=== PATIENT | female | born 1975 | race Caucasian/White ===

== ENCOUNTER → 2017-03-16 | Outpatient (REF) | payer OTHER ==
[2017-03-16 12:35] LABS: BASO % 0.5 % (0.0-1.0); EOS # 0.1 K/mm3 (0.0-0.50); EOS % 1.8 % (0.0-3.0); LARGE UNSTAINED CELL # 0.2 K/mm3 (0.0-0.4); LARGE UNSTAINED CELL % 2.6 % (0.0-4.0); LYMPH # 1.7 K/mm3 (1.5-4.5); LYMPH % 29.4 % (24.0-44.0); MEAN CORPUSCULAR HEMOGLOBIN 30.8 pg (27.0-33.0); MEAN CORPUSCULAR HGB CONC 32.6 g/dl (32.0-36.5); MEAN CORPUSCULAR VOLUME 94.3 fl (80.0-96.0); MONO # 0.3 K/mm3 (0.0-0.8); NEUTROPHILS # 3.5 K/mm3 (1.8-7.7); NEUTROPHILS % 60.6 % (36.0-66.0); PLATELET COUNT, AUTOMATED 265 k/mm3 (150-450); RED CELL DISTRIBUTION WIDTH 13.2 % (11.5-14.5); WHITE BLOOD COUNT 5.8 K/mm3 (4.0-10.0)
[2017-03-16 13:03] LABS: ALBUMIN/GLOBULIN RATIO 0.98 (1.00-1.93); ALKALINE PHOSPHATASE 54 U/L (45-117); ALT/SGPT 27 U/L (12-78); ANION GAP 6 MEQ/L (8-16); AST/SGOT 11 U/L (15-37); BILIRUBIN,TOTAL 0.5 MG/DL (0.2-1.0); BLOOD UREA NITROGEN 22 MG/DL (7-18); CALCIUM LEVEL 9.1 MG/DL (8.5-10.1); CARBON DIOXIDE LEVEL 29 MEQ/L (21-32); CHLORIDE LEVEL 105 MEQ/L (98-107); CREATININE FOR GFR 0.59 MG/DL (0.55-1.02); GLOMERULAR FILTRATION RATE > 60.0 (>58); GLUCOSE, FASTING 80 MG/DL (70-105); POTASSIUM SERUM 4.2 MEQ/L (3.5-5.1); SODIUM LEVEL 140 MEQ/L (136-145); TOTAL PROTEIN 8.1 GM/DL (6.4-8.2)
== END ==
LOC: M SFHCCLAY 08:43
PROVIDERS: ATTEND Family Medicine
DX: R07.89 Other chest pain (principal); E03.9 Hypothyroidism, unspecified; E55.9 Vitamin D deficiency, unspecified

== ENCOUNTER → 2019-01-18 | Outpatient (REF) | payer OTHER ==
[2019-01-18 16:59] LABS: BASO % 0.3 % (0.0-1.0); EOS # 0.2 10^3/uL (0.0-0.50); EOS % 2.2 % (0.0-3.0); HEMATOCRIT 41.5 % (36.0-47.0); HEMOGLOBIN 13.7 g/dl (12.0-15.5); LYMPH # 1.9 10^3/uL (1.5-4.5); LYMPH % 28.3 % (24.0-44.0); MEAN CORPUSCULAR HEMOGLOBIN 30.1 pg (27.0-33.0); MEAN CORPUSCULAR VOLUME 91.2 fl (80.0-96.0); MONO # 0.6 10^3/uL (0.0-0.8); MONO % 8.2 % (0.0-5.0); NEUTROPHILS % 60.6 % (36.0-66.0); PLATELET COUNT, AUTOMATED 342 10^3/uL (150-450); RED BLOOD COUNT 4.55 10^6/uL (4.00-5.40); WHITE BLOOD COUNT 6.7 10^3/uL (4.0-10.0)
[2019-01-18 17:31] LABS: ALBUMIN 3.8 GM/DL (3.2-5.2); ALT/SGPT 51 U/L (12-78); BILIRUBIN,TOTAL 0.4 MG/DL (0.2-1.0); BLOOD UREA NITROGEN 18 MG/DL (7-18); C REACTIVE PROTEIN QUANTITATIV 0.58 MG/DL (0.00-0.30); CALCIUM LEVEL 8.4 MG/DL (8.5-10.1); CARBON DIOXIDE LEVEL 28 MEQ/L (21-32); CHLORIDE LEVEL 108 MEQ/L (98-107); CREATININE FOR GFR 0.76 MG/DL (0.55-1.30); GLOMERULAR FILTRATION RATE > 60.0 (>58); GLUCOSE, FASTING 87 MG/DL (70-100); MAGNESIUM LEVEL 2.4 MG/DL (1.8-2.4); POTASSIUM SERUM 3.7 MEQ/L (3.5-5.1); SODIUM LEVEL 141 MEQ/L (136-145); TOTAL PROTEIN 8.2 GM/DL (6.4-8.2)
[2019-01-18 17:57] LABS: ERYTHROCYTE SEDIMENTATION RATE 33 mm/hr (0-20)
[2019-01-23 00:07] LABS: ANA (HEP2) Negative (.); CYCLIC CITRULLINATED PEPTIDE 4 units (0-19); Lyme Disease IgG/IgM Antibodie <0.91 ISR (0.00-0.90); Lyme Disease IgM Ab Quantitati <0.80 index (0.00-0.79)
== END ==
LOC: M SFHCCLAY 13:46
PROVIDERS: ATTEND Family Medicine
DX: E03.9 Hypothyroidism, unspecified (principal); I10 Essential (primary) hypertension; M25.50 Pain in unspecified joint; M79.10 Myalgia, unspecified site

== ENCOUNTER → 2019-01-28 | Outpatient (CLI) | payer OTHER ==
--- NOTE | 2019-01-29 06:25 | REP ---
Clinical: Thyromegaly. Technique: Real time looney scale and color evaluation using linear and curved array transducers. Findings: The thyroid gland is moderately enlarged and heterogeneous without discrete nodule or cystic changes appreciated. Right thyroid lobe measures 5.2 x 3.1 x 2.6 cm. Left thyroid lobe measures 6.7 x 2.9 x 2.4 cm. Isthmus measures 4.8 mm in width. Impression: Moderately enlarged thyroid gland without discrete abnormality noted. Electronically Signed by Berry Sutton MD 01/29/2019 06:18 A
== END ==
LOC: M RAD 08:24
PROVIDERS: ATTEND Family Medicine
DX: E01.0 Iodine-deficiency related diffuse (endemic) goiter (principal)

== ENCOUNTER → 2019-02-19 | Outpatient (CLI) | payer OTHER ==
--- NOTE | 2019-02-19 11:09 | REP ---
PA and lateral chest: There are no comparisons. The lung osorio are clear. The cardiac size is normal. The nohemi, mediastinum, and skeletal structures are unremarkable. Impression: Negative PA and lateral chest. Electronically Signed by Steve Freed MD 02/19/2019 11:01 A
== END ==
LOC: M CLY 10:29
PROVIDERS: ATTEND Family Medicine
DX: R06.02 Shortness of breath (principal); R68.83 Chills (without fever)

== ENCOUNTER → 2019-03-11 | Outpatient (REF) | payer OTHER | LOC: M SFHCCLAY 15:59 | PROVIDERS: ATTEND Family Medicine | DX: E03.9 Hypothyroidism, unspecified (principal); I10 Essential (primary) hypertension ==

== ENCOUNTER → 2019-07-23 | Outpatient (REF) | payer OTHER ==
[2019-07-23 18:58] LABS: BASO % 0.7 % (0.0-1.0); EOS # 0.1 10^3/uL (0.0-0.5); EOS % 1.9 % (0.0-3.0); HEMATOCRIT 39.9 % (36.0-47.0); HEMOGLOBIN 13.1 g/dl (12.0-15.5); LYMPH % 33.3 % (24.0-44.0); MEAN CORPUSCULAR HEMOGLOBIN 30.3 pg (27.0-33.0); MEAN CORPUSCULAR HGB CONC 32.8 g/dl (32.0-36.5); MEAN CORPUSCULAR VOLUME 92.4 fl (80.0-96.0); MONO # 0.6 10^3/uL (0.0-0.8); MONO % 10.4 % (0.0-5.0); NEUTROPHILS # 3.1 10^3/uL (1.5-8.5); NEUTROPHILS % 53.4 % (36.0-66.0); PLATELET COUNT, AUTOMATED 207 10^3/uL (150-450); RED BLOOD COUNT 4.32 10^6/uL (4.00-5.40); WHITE BLOOD COUNT 5.9 10^3/uL (4.0-10.0)
[2019-07-23 19:22] LABS: ALBUMIN 3.7 GM/DL (3.2-5.2); ALT/SGPT 31 U/L (12-78); BILIRUBIN,TOTAL 0.4 MG/DL (0.2-1.0); BLOOD UREA NITROGEN 12 MG/DL (7-18); CALCIUM LEVEL 8.8 MG/DL (8.5-10.1); CARBON DIOXIDE LEVEL 26 MEQ/L (21-32); CHLORIDE LEVEL 109 MEQ/L (98-107); CREATININE FOR GFR 0.69 MG/DL (0.55-1.30); FOLLICLE STIMULATING HORMONE 7.4 mIU/mL; GLOMERULAR FILTRATION RATE > 60.0 (>58); GLUCOSE, FASTING 95 MG/DL (70-100); IRON (FE) 99 UG/DL (50-170); POTASSIUM SERUM 3.6 MEQ/L (3.5-5.1); SODIUM LEVEL 141 MEQ/L (136-145); THYROXINE (T4) 7.1 UG/DL (4.5-12.0); TOTAL PROTEIN 7.8 GM/DL (6.4-8.2); TOTAL T3 109.2 NG/DL (60.0-181.0)
[2019-07-23 19:29] LABS: HEMOGLOBIN A1c 5.7 %
== END ==
LOC: M SFHCCLAY 10:32
PROVIDERS: ATTEND Family Medicine
DX: K62.5 Hemorrhage of anus and rectum (principal); I10 Essential (primary) hypertension; E28.2 Polycystic ovarian syndrome; E03.9 Hypothyroidism, unspecified; N93.9 Abnormal uterine and vaginal bleeding, unspecified

== ENCOUNTER 2019-10-09 10:41 | Day surgery (SDC) | payer OTHER ==
[~2019-10-09] VITALS: Ht 163.8 cm; Wt 76.7 kg
[~2019-10-09 10:41] MED LIST: LIDOCAINE 2% INJ 100 MG/5 ML SDV (FOR ANES.) As Ordered ONE; NS 1,000 ML IV ONE; PROPOFOL 200 MG/20 ML VIAL As Ordered ONE; SPIR-10 PO; VENL150C43 PO
[2019-10-09] MEDS ORDERED: fentaNYL 100 MCG/2 ML INJECTION (J3010) As Ordered ONE (12:22)
[2019-10-09] MEDS ORDERED: PROPOFOL 200 MG/20 ML VIAL As Ordered ONE (12:30)
--- NOTE | 2019-10-09 12:38 | ROOR ---
Patient Name: Vanessa Eugene Procedure Date: 10/09/2019 12:16 PM Date of : 1975 Age: 44 Room: [facility] Gender: Female Note Status: Finalized Procedure: Upper GI endoscopy + Balloon Dilatation Indications: Dysphagia, Weight loss Providers: Rajeev Peters MD Referring MD: DANIEL MCLAUGHLIN DO Requesting Provider: Medicines: Monitored Anesthesia Care Complications: No immediate complications. Procedure: Pre-Anesthesia Assessment: - The heart rate, respiratory rate, oxygen saturations, blood pressure, adequacy of pulmonary ventilation, and response to care were monitored throughout the procedure. The Endoscope was introduced through the mouth, and advanced to the second part of duodenum. The upper GI endoscopy was accomplished without difficulty. The patient tolerated the procedure well. Findings: The Z-line was regular and was found 40 cm from the incisors. The exam of the esophagus was otherwise normal. A TTS dilator was passed through the scope. Dilation with a 15-16.5-18 mm balloon dilator was performed to 15 mm in the entire esophagus. No other significant abnormalities were identified in a careful examination of the stomach. The exam of the duodenum was otherwise normal. Impression: - Z-line regular, 40 cm from the incisors. - Dilation performed in the entire esophagus. - No specimens collected. - The examination was otherwise normal. Recommendation: - Patient has a contact number available for emergencies. The signs and symptoms of potential delayed complications were discussed with the patient. Return to normal activities tomorrow. Written discharge instructions were provided to the patient. - High fiber diet. - Discharge patient to home. - Continue present medications. - Return to referring physician. - The findings and recommendations were discussed with the patient's family. Rajeev Peters MD Rajeev Peters MD 10/09/2019 12:37:49 PM Electronically signed by Rajeev Peters MD Number of Addenda: 0 Note Initiated On: 10/09/2019 12:16 PM Estimated Blood Loss: Estimated blood loss: none.
--- NOTE | 2019-10-09 13:01 | ROOR ---
Patient Name: Vanessa Eugene Procedure Date: 10/09/2019 12:16 PM Date of : 1975 Age: 44 Room: [facility] Gender: Female Note Status: Finalized Procedure: Total Colonoscopy to Cecum + ileoscopy + Bx Indications: Clinically significant diarrhea of unexplained origin, Rectal bleeding, Weight loss Providers: Rajeev Peters MD Referring MD: DANIEL MCLAUGHLIN DO Requesting Provider: Medicines: Monitored Anesthesia Care Complications: No immediate complications. Procedure: Pre-Anesthesia Assessment: - The heart rate, respiratory rate, oxygen saturations, blood pressure, adequacy of pulmonary ventilation, and response to care were monitored throughout the procedure. The Colonoscope was introduced through the anus and advanced to the terminal ileum, with identification of the appendiceal orifice and IC valve. The colonoscopy was performed without difficulty. The patient tolerated the procedure well. The quality of the bowel preparation was excellent. Findings: The perianal and digital rectal examinations were normal. Non-bleeding internal hemorrhoids were found during retroflexion. The hemorrhoids were small and Grade I (internal hemorrhoids that do not prolapse). No other significant abnormalities were identified in a careful examination of the remainder of the colon. The exam was otherwise without abnormality on direct and retroflexion views. Biopsies for histology were taken with a cold forceps from the cecum, ascending colon, transverse colon, descending colon and rectosigmoid colon for evaluation of microscopic colitis. A diffuse area of mucosa in the terminal ileum was nodular. Biopsies were taken with a cold forceps for histology. The exam was otherwise without abnormality. Impression: - Non-bleeding internal hemorrhoids. - The examination was otherwise normal on direct and retroflexion views. - Nodular ileal mucosa. Biopsied. - The examination was otherwise normal. - Biopsies were taken with a cold forceps from the cecum, ascending colon, transverse colon, descending colon and rectosigmoid colon for evaluation of microscopic colitis. - The exam was otherwise normal to the cecum. Recommendation: - Patient has a contact number available for emergencies. The signs and symptoms of potential delayed complications were discussed with the patient. Return to normal activities tomorrow. Written discharge instructions were provided to the patient. - High fiber diet. - Discharge patient to home. - Continue present medications. - Await pathology results. - Telephone GI clinic for pathology results in 1 week. - Repeat colonoscopy in 5 years for screening purposes. - The findings and recommendations were discussed with the patient's family. Rajeev Peters MD Rajeev Peters MD 10/09/2019 1:01:08 PM Electronically signed by Rajeev Peters MD Number of Addenda: 0 Note Initiated On: 10/09/2019 12:16 PM Estimated Blood Loss: Estimated blood loss: none.
[2019-10-09 13:35] VITALS: BP 153/89
== END 2019-10-09 13:37 | disposition home or self-care (01) ==
LOC: M OPP 10:41
PROVIDERS: ATTEND Internal Medicine Gastroenterology
DX: K64.0 First degree hemorrhoids (principal); K63.89 Other specified diseases of intestine; R19.7 Diarrhea, unspecified; K62.5 Hemorrhage of anus and rectum; K63.4 Enteroptosis; R13.10 Dysphagia, unspecified; Z79.899 Other long term (current) drug therapy; Z88.5 Allergy status to narcotic agent; Z80.0 Family history of malignant neoplasm of digestive organs
CPT/HCPCS: 43239; 88305; J3010

== ENCOUNTER 2020-05-14 07:38 | Observation (INO) | payer OTHER ==
[~2020-05-14] VITALS: Ht 162.6 cm; Wt 79.8 kg
[~2020-05-14 07:38] MED LIST changes: -LIDOCAINE 2% INJ 100 MG/5 ML SDV (FOR ANES.) As Ordered ONE; -NS 1,000 ML IV ONE; -PROPOFOL 200 MG/20 ML VIAL As Ordered ONE
[2020-05-14] MEDS ORDERED: EUTH150T PO (07:51)
[2020-05-14] MEDS ORDERED: ISOVUE-370 76% 100ML VIAL As Ordered ONE (08:09)
[2020-05-14] MEDS ORDERED: METOCLOPRAMIDE INJ 10MG/2ML VIAL (J2765 PER 1) IV ONE (08:15)
[2020-05-14] MEDS ORDERED: NS 1,000 ML IV ONE (08:15)
[2020-05-14 08:23] LABS: BASO % 0.4 % (0.0-1.0); EOS # 0.1 10^3/uL (0.0-0.5); HEMATOCRIT 40.5 % (36.0-47.0); HEMOGLOBIN 13.4 g/dl (12.0-15.5); LYMPH # 1.3 10^3/uL (1.5-5.0); LYMPH % 19.1 % (24.0-44.0); MEAN CORPUSCULAR HEMOGLOBIN 30.2 pg (27.0-33.0); MEAN CORPUSCULAR HGB CONC 33.1 g/dl (32.0-36.5); MEAN CORPUSCULAR VOLUME 91.2 fl (80.0-96.0); MONO # 0.5 10^3/uL (0.0-0.8); NEUTROPHILS # 4.9 10^3/uL (1.5-8.5); NEUTROPHILS % 72.1 % (36.0-66.0); PLATELET COUNT, AUTOMATED 247 10^3/uL (150-450); RED BLOOD COUNT 4.44 10^6/uL (4.00-5.40); WHITE BLOOD COUNT 6.9 10^3/uL (4.0-10.0)
--- NOTE | 2020-05-14 08:33 | REP ---
Head CT without contrast: History: CVA. Comparison study: Comparison brain MRI study and February 07, 2014. CT findings: Bone window settings demonstrate an intact bony calvarium. There is a small osteoma in the left frontal bone at the inner table unchanged from the 2014 prior study. There is no evidence of skull fracture or significant bony calvarial lesion. The visualized paranasal sinuses appear clear. No intraorbital abnormality is seen. On soft tissue window setting images; the lateral, third, and fourth ventricles are normal in size and position. Calcification associated with the previously noted 10 mm pineal cyst is seen. This is unchanged in size. Loza-white differentiation pattern is normal above and below the tentorium. There are is no evidence of intracranial hemorrhage. No mass, edema, infarction, or midline shift is seen. No extra-axial fluid collection is appreciated. 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 Otherwise negative noncontrast head CT. Electronically Signed by Lincoln Ramírez MD 05/14/2020 08:24 A
[2020-05-14 08:36] LABS: INR 1.09; PROTHROMBIN TIME 13.8 SECONDS (11.8-14.0)
[2020-05-14 08:37] LABS: PARTIAL THROMBOPLASTIN TIME 21.8 SECONDS (25.0-38.4)
[2020-05-14 08:50] LABS: ALBUMIN 3.6 GM/DL (3.2-5.2); ALT/SGPT 51 U/L (12-78); BILIRUBIN,DIRECT 0.2 MG/DL (0.0-0.2); BILIRUBIN,TOTAL 0.6 MG/DL (0.2-1.0); BLOOD UREA NITROGEN 13 MG/DL (7-18); CALCIUM LEVEL 8.5 MG/DL (8.5-10.1); CARBON DIOXIDE LEVEL 25 MEQ/L (21-32); CHLORIDE LEVEL 106 MEQ/L (98-107); CK-MB VALUE MASS 1.5 NG/ML (<3.6); CPK CREATINE PHOSPHOKINASE 104 U/L (26-192); CREATININE FOR GFR 0.78 MG/DL (0.55-1.30); FREE T4 0.93 NG/DL (0.76-1.46); GLOMERULAR FILTRATION RATE > 60.0 (>58); GLUCOSE, FASTING 135 MG/DL (70-100); MB/CK RELATIVE INDEX 1.44 (< OR =4); POTASSIUM SERUM 3.6 MEQ/L (3.5-5.1); SODIUM LEVEL 138 MEQ/L (136-145); TROPONIN I < 0.02 NG/ML (< 0.10)
--- NOTE | 2020-05-14 08:53 | REP ---
Portable chest x-ray: Single view. History: CVA. Comparison chest x-ray: February 19, 2019. Findings: Monitoring electrodes overlie the chest. Lungs are well inflated and clear. The pleural angles are sharp. Heart size is normal. Pulmonary vasculature is not increased. Impression: Negative portable chest x-ray. Electronically Signed by Lincoln Ramírez MD 05/14/2020 08:45 A
[2020-05-14] MEDS ORDERED: LABETALOL 100MG/20ML VIAL IV STA (08:56)
--- NOTE | 2020-05-14 09:56 | REP ---
Intra and extracranial CTA: 05/14/2020. Indication: Stroke. Technique: High resolution axial CT images of the intra and extracranial vessels were performed following IV iodinated contrast administration with coronal, sagittal and 3-D reconstructions provided. Comparison: None. Findings: There is no hemodynamically significant extracranial ICA stenosis by NASCET criteria. Thyromegaly is present without focal pathologic contrast enhancement or additional focal abnormalities. The visualized lungs are clear. The great vessels originate in expected anatomic fashion from the aortic arch. There is no intracranial high-grade stenosis, vessel occlusion, severe stenosis or AVM. Impression: No high-grade stenosis, vessel occlusion or additional vascular pathology. Electronically Signed by Jose Bueno DO 05/14/2020 09:47 A
[2020-05-14] MEDS ORDERED: VENL75CA47 PO (10:10)
[2020-05-14] MEDS ORDERED: ASPIRIN 325 MG TAB PO ONE (10:30)
--- NOTE | 2020-05-14 12:28 | HPEPDOC ---
[facility] Medical History & Physical Date of Admission May 14, 2020 Date of Service: May 14, 2020 Attending Physician: Natalie Arauz MD History and Physical CHIEF COMPLAINT: generalized numbness HISTORY OF PRESENT ILLNESS: Patient is a 45-year-old female with past medical history of migraine headaches, PCOS, uncontrolled hypertension, anxiety, depression, hypothyroidism who presented to [facility] emergency room with the chief complaint of generalized numbness. According to the patient, she has not been feeling well for the past several days. She has had increased lethargy, headaches (frontal, throbbing, has had in past seen neurologist for pineal cyst-migraine headache, 8/10 on pain scale), nausea with dry heaves only, lightheadedness, dizziness, vision changes (black floaters in vision field). Patient has had a lot of stress at home with a child recently graduating, taking care of 50 y/o disabled sister, stress due to money, taking care of mother in [facility]. She feels like there is a lot on her shoulders and that she is responsible for most of her family. 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 Denies shortness of breath, falls, diarrhea, fevers, chills, recent illnesses or hospitalizations. Today she she was in the shower when she felt she was going to "pass out". She got out of the shower and she says she "couldn't feel anything", everything was "numb" and her legs started to burn. She had hot flashes. While driving her son told her she was on the opposite side of the road. She denies losing consciousness but she doesn't feel as "alert" as she would be. She pulled over to the side of the road, hands were shaking and numb, became diaphoretic and she told her son to call 911. She was then brought to ER for further evaluation. Of note, patient had stopped taking all medications since 09/2019 and was recently restarted on her prior medications by PCP. In ER, most of patient's numbness resolved except for only some in left hand. BP was as high as 190's systolic, stroke score was 1. CT head, CTA head and neck neg. Patient continued to feel weak on exam. Neurology was consulted who recommended observation stay and MRI studies. She was admitted for generalized numbness/weakness r/o TIA, hypertensive urgency. PAST MEDICAL HISTORY: 1. Migraine headaches (3-4 x/weeks) 2. PCOS 3. uncontrolled HTN 4. Anxiety 5. Depression 6. Hypothyroidism 7. Throat goiter (upcoming US on 05/20/20) 8. Dysphagia 9. Hx of pineal cyst PAST SURGICAL HISTORY: 1. Left shoulder tear repair 2. "Throat stretching" 09/2019 3. Tubal ligation 4. Colonscopy 09/2019 SOCIAL HISTORY: Denies smoking, alcohol or illicit drug use. Lives locally with her family. 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 Previously followed with Dr. Hernandez at [facility] for neurology. PCP Dr. Rosenbaum. GI- Dr. Peters. Colonoscopy recently. Full Code. FAMILY HISTORY: Father: CAD, [place]. at 62 y/o. Mother: DM type I, dementia. Alive ALLERGIES: Please see below. DISCHARGE MEDICATIONS: Please see below. PHYSICAL EXAMINATION: CONSTITUTIONAL: No acute distress, resting comfortably, AAO x 3 EYES: PERRLA, EOM intact HENT, MOUTH: Normocephalic, atraumatic, moist mucous membranes, NECK: SUPPLE, no JVD, no lymphadenopathy, no carotid bruit CV: Regular rate and rhythm, S1S2 normal, no murmurs/rubs/gallops RESPIRATORY: Clear to auscultation bilaterally, no rales/rhonchi/wheezes GI: BS positive in 4 quadrants, soft, nontender, nondistended, no rebound or guarding, no organomegaly : Deferred MUSCULOSKELETAL: Normal ROM. 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 Otherwise negative noncontrast head CT. CTA head: No high-grade stenosis, vessel occlusion or additional vascular pathology. CTA neck: No high-grade stenosis, vessel occlusion or additional vascular pathology. ASSESSMENT: 45 y/o F admitted for generalized numbness and weakness r/o TIA vs. complicated migraine headache, hypertensive urgency. PLAN: 1. Generalized numbness and weakness r/o TIA vs. complicated migraine headache. -Hx of migraine headaches, has seen neurology in the past -Images above -C/w statin, ASA. Consider sumatriptan -F/u MRI, MRA brain, lipid panel, HbA1c, neuro checks Q4 hrs, PT/OT 2. Hypertensive urgency. -BP 190's, gradually improved on its own to 160/85 -C/w spironolactone, may add hydralazine PRN 3. PCOS. -C/w spironolactone 4. Hypothyrodism with history of goiter -Upcoming US on 05/20/20 -TSH wnl -C/w levothyroxine daily. 5. Anxiety/depression. -Patient has many stressors at home, admits to feeling down at times -Denies homicidal or suicidal ideation -C/w venlafaxine 6. DVT px. -Enoxaparin DISPOSITION: Currently under observation status. Plan is discharge home when medically improved. Vital Signs Vital Signs Date Time Temp Pulse Resp B/P (MAP) Pulse Ox O2 Delivery O2 Flow Rate FiO2 05/14/20 11:07 18 05/14/20 10:15 67 144/96 (112) 98 Room Air 05/14/20 09:07 96.1 Laboratory Data Labs 24H Laboratory Tests 2 05/14/20 08:02: Immature Granulocyte % (Auto) 0.4, Neutrophils (%) (Auto) 72.1H, Lymphocytes (%) (Auto) 19.1L, Monocytes (%) (Auto) 7.0H, Eosinophils (%) (Auto) 1.0, Basophils (%) (Auto) 0.4, Neutrophils # (Auto) 4.9, Lymphocytes # (Auto) 1.3L, Monocytes # (Auto) 0.5, Eosinophils # (Auto) 0.1, Basophils # (Auto) 0.0, Nucleated Red Blood Cells % (auto) 0.0, Prothrombin Time 13.8, Prothromb Time International R atio 1.09, Activated Partial Thromboplast Time 21.8L, POC Glucose (Misc Panel) 145H, POC Sodium (Misc Panel) 139, POC Potassium (Misc Panel) 3.6, POC Chloride (Misc Panel) 102, POC Total CO2 (Misc Panel) 22.0L, POC Blood Urea Nitrogen (Misc Panel 14, POC Ionized Calcium (Misc Panel) 4.5, POC Creatinine (Misc Panel) 0.6, POC Hematocrit (Misc Panel) 42.0, Anion Gap 7L, Glomerular Filtration Rate > 60.0, Calcium Level 8.5, Total Bilirubin 0.6, Direct Bilirubin 0.2, Aspartate Amino Transf (AST/SGOT) 23, Alanine Aminotransferase (ALT/SGPT) 51, Alkaline Phosphatase 66, Total Creatine Kinase 104, Creatine Kinase MB 1.5, Creatine Kinase MB Relative Index 1.44, Troponin I < 0.02, Total Protein 8.0, A lbumin 3.6, Albumin/Globulin Ratio 0.8L, Thyroid Stimulating Hormone (TSH) 3.080, Free Thyroxine 0.93 05/14/20 08:04: POC Beta HCG, Quantitative < 5.0 CBC/BMP Laboratory Tests 05/14/20 08:02 Home Medications Scheduled Levothyroxine Sodium (Euthyrox) 150 Mcg Tablet, MCG PO DAILY Spironolactone (Spironolactone) 25 Mg Tablet, 25 MG PO DAILY NEW MED, NOT STARTED Venlafaxine HCl (Venlafaxine HCl ER) 75 Mg Cap.er.24h, 150 MG PO DAILY Allergies Coded Allergies: hydromorphone (Verified Adverse Reaction, Severe, hallucinations, panic attack, 05/14/20) A-FIB/CHADSVASC A-FIB History Current/History of A-Fib/PAF?: No Current PO Anticoag Therapy: No Age/Risk Factor Scoring CHADSVASC: CHADSVASC Response (Comments) Value Age Risk Factor Age < 65 years old 0 Gender Risk Factor Female 1 Hx of CHF No 0 Hx of HTN Yes 1 Hx of Stroke/TIA/or VTE Yes 2 Hx of Diabetes No 0 Hx of Vascular Disease No 0 Total 4 Treatment Treatment ordered: Other Other anticoagulant ordered: enoxaparin Natalie Arauz MD May 14, 2020 12:28
[2020-05-14 13:51] VITALS: BP 160/85
[2020-05-14] MEDS: VENLAFAXINE **XR** 75MG CAPSULE PO SCH (14:07)
[2020-05-14] MEDS: LEVOTHYROXINE 150MCG TABLET (0.15MG) PO SCH (14:08)
--- NOTE | 2020-05-14 15:03 | REP ---
MRI brain: 05/14/2020. Indication: Stroke. Technique: Multiplanar short and long TR sequences of the brain were obtained without IV Gadolinium. Comparison: 03/19/2012. Findings: There are no areas of restricted diffusion to suggest an acute infarction. There is no intracranial mass effect, hydrocephalus or significant hemorrhage. Pineal region benign-appearing cyst is stable. There are no areas of abnormal signal within the brainstem or brain parenchyma. The large intracranial flow voids are unremarkable. The craniocervical junction is unremarkable as well. Impression: No acute intracranial process. Stable pineal region cyst. Electronically Signed by Jose Bueno DO 05/14/2020 02:56 P
[2020-05-14] MEDS: ENOXAPARIN 40MG/0.4ML SYRINGE (J1650 PER 10MG) SC SCH (15:15)
--- NOTE | 2020-05-14 16:07 | REP ---
Intracranial MRA: 05/14/2020. Indication: Stroke. Technique: 3-D [id number] imaging of the intracranial vessels were performed. Comparison: CTA completed today. Findings: There is no intracranial high-grade stenosis, vessel cutoff, aneurysm or AVM. The intracranial vessels are unchanged compared to earlier today. Impression: No intracranial vascular high-grade stenosis or vessel cutoff. Electronically Signed by Jose Bueno DO 05/14/2020 03:58 P
[2020-05-14 22:00] VITALS: BP 156/87
--- NOTE | 2020-05-15 00:35 | ECGEPIP ---
[facility] - ED Test Date: 2020-05-14 Pat Name: RUBIO CAMP Department: Room: - Gender: Female Trouble Tracer: : 1975 Requested By: JENNY Yost Order Number: [id number] Reading MD: Steven Johns Measurements Intervals Dubois Rate: 69 P: 71 VT: 208 QRS: 42 QRSD: 94 T: 33 QT: 388 QTc: 417 Interpretive Statements SINUS RHYTHM Baseline artifact Comparison tracing not on file Electronically Signed on 05-15-2020 0:35:20 EDT by Steven Johns
[2020-05-15] MEDS: LEVOTHYROXINE 150MCG TABLET (0.15MG) PO SCH (05:28)
[2020-05-15 06:00] VITALS: BP 151/87
[2020-05-15 06:50] LABS: HEMOGLOBIN 13.8 g/dl (12.0-15.5); MEAN CORPUSCULAR HEMOGLOBIN 30.9 pg (27.0-33.0); MEAN CORPUSCULAR HGB CONC 33.7 g/dl (32.0-36.5); MEAN CORPUSCULAR VOLUME 91.7 fl (80.0-96.0); PLATELET COUNT, AUTOMATED 257 10^3/uL (150-450); RED BLOOD COUNT 4.47 10^6/uL (4.00-5.40); WHITE BLOOD COUNT 6.8 10^3/uL (4.0-10.0)
[2020-05-15 07:07] LABS: ALBUMIN 3.5 GM/DL (3.2-5.2); ALT/SGPT 42 U/L (12-78); BILIRUBIN,TOTAL 0.7 MG/DL (0.2-1.0); BLOOD UREA NITROGEN 13 MG/DL (7-18); CALCIUM LEVEL 8.7 MG/DL (8.5-10.1); CARBON DIOXIDE LEVEL 28 MEQ/L (21-32); CHLORIDE LEVEL 105 MEQ/L (98-107); CHOLESTEROL LEVEL 179 MG/DL (<200); CHOLESTEROL RISK RATIO 2.983 (<5); CREATININE FOR GFR 0.76 MG/DL (0.55-1.30); GLOMERULAR FILTRATION RATE > 60.0 (>58); GLUCOSE, FASTING 86 MG/DL (70-100); HDL CHOLESTEROL 60 MG/DL (>40); LDL CHOLESTEROL 96 MG/DL (<100); NON-HDL-C 119 MG/DL; POTASSIUM SERUM 3.6 MEQ/L (3.5-5.1); SODIUM LEVEL 139 MEQ/L (136-145); TOTAL PROTEIN 7.8 GM/DL (6.4-8.2); TRIGLYCERIDES LEVEL 114 MG/DL (<150)
[2020-05-15 07:41] LABS: HEMOGLOBIN A1c 5.6 %
[2020-05-15] MEDS ORDERED: ASPIRIN 81 MG CHEW TABLET PO SCH (09:00)
[2020-05-15] MEDS ORDERED: lisinopriL 5 MG TAB PO SCH (09:00)
[2020-05-15] MEDS ORDERED: SPIRONOLACTONE 25 MG TAB PO SCH (09:00)
[2020-05-15] MEDS: ENOXAPARIN 40MG/0.4ML SYRINGE (J1650 PER 10MG) SC SCH (09:01)
[2020-05-15] MEDS: VENLAFAXINE **XR** 75MG CAPSULE PO SCH (09:01)
[2020-05-15 10:22] VITALS: BP 138/81
[2020-05-15] MEDS ORDERED: LISI-542 PO (13:27)
[2020-05-15 14:00] VITALS: BP 141/86
--- NOTE | 2020-05-15 17:03 | DS.PDOC ---
Discharge Summary General Date of Admission May 14, 2020 at 07:39 Date of Discharge 05/15/20 Attending Physician: Natalie Arauz MD Discharge Summary HISTORY OF PRESENT ILLNESS: Patient is a 45-year-old female with past medical history of migraine headaches, PCOS, uncontrolled hypertension, anxiety, depression, hypothyroidism who presented to [facility] emergency room with the chief complaint of generalized numbness. According to the patient, she has not been feeling well for the past several days. She has had increased lethargy, headaches (frontal, throbbing, has had in past seen neurologist for pineal cyst-migraine headache, 8/10 on pain scale), nausea with dry heaves only, lightheadedness, dizziness, vision changes (black floaters in vision field). Patient has had a lot of stress at home with a child recently graduating, taking care of 50 y/o disabled sister, stress due to money, taking care of mother in [facility]. She feels like there is a lot on her shoulders and that she is responsible for most of her family. 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 Denies shortness of breath, falls, diarrhea, fevers, chills, recent illnesses or hospitalizations. Today she she was in the shower when she felt she was going to "pass out". She got out of the shower and she says she "couldn't feel anything", everything was "numb" and her legs started to burn. She had hot flashes. While driving her son told her she was on the opposite side of the road. She denies losing consciousness but she doesn't feel as "alert" as she would be. She pulled over to the side of the road, hands were shaking and numb, became diaphoretic and she told her son to call 911. She was then brought to ER for further evaluation. Of note, patient had stopped taking all medications since 09/2019 and was recently restarted on her prior medications by PCP. In ER, most of patient's numbness resolved except for only some in left hand. BP was as high as 190's systolic, stroke score was 1. CT head, CTA head and neck neg. Patient continued to feel weak on exam. Neurology was consulted who recommended observation stay and MRI studies. She was admitted for generalized numbness/weakness r/o TIA, hypertensive urgency. HOSPITAL COURSE: The patient's blood pressure remained elevated at 1 501 60 mmHg, she was started on a low-dose LUCI inhibitor. MRI and MRA of the brain were negative for acute findings. The patient had negative neurological checks overnight. On examination The patient had no symptoms. She had received a full nights and felt much more refreshed and less stressed today. The patient has a history of migraines and with her recent increase in stress in her life, this is likely the cause of her abnormal symptoms that led her to be admitted yesterday. Atypical migraine is likely the diagnosis. Today the patient has no migraine headache, has been eating well and has no difficulty ambulating. She'll be discharged home to follow-up with her primary care doctor, new medication includes lisinopril 5 mg oral daily. On discharge the patient denies chest pain, shortness of breath, palpitations, nausea, vomiting, fevers, lightheadedness or dizziness. PAST MEDICAL HISTORY: 1. Migraine headaches (3-4 x/weeks) 2. PCOS 3. uncontrolled HTN 4. Anxiety 5. Depression 6. Hypothyroidism 7. Throat goiter (upcoming US on 05/20/20) 8. Dysphagia 9. Hx of pineal cyst PAST SURGICAL HISTORY: 1. Left shoulder tear repair 2. "Throat stretching" 09/2019 3. Tubal ligation 4. Colonscopy 09/2019 SOCIAL HISTORY: Denies smoking, alcohol or illicit drug use. Lives locally with her family. 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 Previously followed with Dr. Hernandez at [facility] for neurology. PCP Dr. Rosenbaum. GI- Dr. Peters. Colonoscopy recently. Full Code. FAMILY HISTORY: Father: CAD, SD. at 62 y/o. Mother: DM type I, dementia. Alive ALLERGIES: Please see below. DISCHARGE MEDICATIONS: Please see below. PHYSICAL EXAMINATION: CONSTITUTIONAL: No acute distress, resting comfortably, AAO x 3 EYES: PERRLA, EOM intact HENT, MOUTH: Normocephalic, atraumatic, moist mucous membranes, NECK: SUPPLE, no JVD, no lymphadenopathy, no carotid bruit CV: Regular rate and rhythm, S1S2 normal, no murmurs/rubs/gallops RESPIRATORY: Clear to auscultation bilaterally, no rales/rhonchi/wheezes GI: BS positive in 4 quadrants, soft, nontender, nondistended, no rebound or guarding, no organomegaly : Deferred MUSCULOSKELETAL: Normal ROM. No cyanosis, clubbing, swelling, joint deformity, extremity edema INTEGUMENTARY: Intact, no rashes, no lesions, no erythema NEUROLOGIC: Cranial Nerves II-XII are intact, no focal deficits, strength 5/5/ in all extremities, no sensory or motor issues, reflexes in tact PSYCHIATRIC: Mood and affect are normal LABORATORY DATA: Please see below IMAGING: MRI brain: No acute intracranial process. Stable pineal region cyst. MRA brain: No intracranial vascular high-grade stenosis or vessel cutoff. CT head: Stable 10 mm pineal cyst unchanged from 2014 prior study. Otherwise negative noncontrast head CT. CTA head: No high-grade stenosis, vessel occlusion or additional vascular pathology. CTA neck: No high-grade stenosis, vessel occlusion or additional vascular pathology. ASSESSMENT: 45 y/o F admitted for generalized numbness and weakness r/o TIA vs. complicated migraine headache, hypertensive urgency. PLAN: 1. Generalized numbness and weakness likely 2/2 to complicated migraine headache. -Hx of migraine headaches, has seen neurology in the past -Neuro checks neg, headache resolved -Many stressors in life currently, advised needing to eliminate these or some as they are likely contributing to her headaches -Images above -If migraines persist, recommend re-referral to neurology 2. Hypertension, uncontrolled -Improved with ACEi -C/w spironolactone, lisinopril after d/c 3. PCOS. -C/w spironolactone 4. Hypothyrodism with history of goiter -Upcoming US on 05/20/20 -TSH wnl -C/w levothyroxine daily. 5. Anxiety/depression. -Patient has many stressors at home, admits to feeling down at times -Denies homicidal or suicidal ideation -C/w venlafaxine DISPOSITION: Discharging home with encouraging f/u with PCP after holiday weekend. TIME SPENT ON DISCHARGE: Greater than 30 minutes. Vital Signs/I&Os Vital Signs Date Time Temp Pulse Resp B/P (MAP) Pulse Ox O2 Delivery O2 Flow Rate FiO2 05/15/20 14:00 97.6 75 20 141/86 (104) 100 Room Air I&O- Last 24 Hours up to 6 AM 05/15/20 06:00 Intake Total 1750 ml Output Total 375 ml Balance 1375 ml Laboratory Data Labs 24H Laboratory Tests 2 05/15/20 05:35: Nucleated Red Blood Cells % (auto) 0.0, Anion Gap 6L, Glomerular Filtration Rate > 60.0, Estimated Mean Plasma Glucose 114H, Hemoglobin A1c 5.6, Calcium Level 8.7, Total Bilirubin 0.7, Aspartate Amino Transf (AST/SGOT) 20, Alanine Aminotransferase (ALT/SGPT) 42, Alkaline Phosphatase 69, Total Protein 7.8, Albumin 3.5, Albumin/Globulin Ratio 0.8L, Triglycerides Level 114, Total Cholesterol 179, LDL Cholesterol 96, Non-HDL Cholesterol (LDL + VLDL) 119, Total HDL Cholesterol 60, Cholesterol/HDL Ratio 2.983 CBC/BMP Laboratory Tests 05/15/20 05:35 Discharge Medications Scheduled Levothyroxine Sodium (Euthyrox) 150 Mcg Tablet, MCG PO DAILY, (Reported) Lisinopril (Lisinopril) 5 Mg Tablet, 5 MG PO DAILY Spironolactone (Spironolactone) 25 Mg Tablet, 25 MG PO DAILY, (Reported) NEW MED, NOT STARTED Venlafaxine HCl (Venlafaxine HCl ER) 75 Mg Cap.er.24h, 150 MG PO DAILY, (Reported) Allergies Coded Allergies: hydromorphone (Verified Adverse Reaction, Severe, hallucinations, panic attack, 05/14/20) Natalie Arauz MD May 15, 2020 17:03
== END 2020-05-15 14:18 | disposition home or self-care (01) ==
LOC: M ED 07:38 → EDBD 07:38 → M ED INP 07:39 → ENRESERV 12:22 → M MSPAV 13:52
PROVIDERS: ADMIT Internal Medicine; ATTEND Internal Medicine
DX: G43.909 Migraine, unspecified, not intractable, without status migrainosus (principal); I16.0 Hypertensive urgency; E28.2 Polycystic ovarian syndrome; E03.9 Hypothyroidism, unspecified; E04.9 Nontoxic goiter, unspecified; F41.9 Anxiety disorder, unspecified; F32.9 Major depressive disorder, single episode, unspecified; R13.10 Dysphagia, unspecified; Z79.899 Other long term (current) drug therapy
CPT/HCPCS: 36415; 70450; 70496; 70498; 70544; 70551; 71045; 80047; 80048; 80053; 80061; 80076; 82550; 82553; 83036; 84439; 84443; 84702; 85025; 85027; 85610; 85730; 86850; 86900; 86901; 93005; 93041; 94760; 96361; 96372; 96374; 97161; 97165; 99285; J1650; J2765; Q9967

== ENCOUNTER → 2020-05-20 | Outpatient (CLI) | payer OTHER ==
[~2020-05-20] MED LIST changes: +EUTH150T PO; +LISI-542 PO; +VENL75CA47 PO
== END ==
LOC: M LRY 08:48
PROVIDERS: ATTEND Family Medicine
DX: Z53.9 Procedure and treatment not carried out, unspecified reason (principal); E01.0 Iodine-deficiency related diffuse (endemic) goiter

== ENCOUNTER 2020-09-29 09:02 | Emergency (ER) | payer OTHER ==
[~2020-09-29] VITALS: Ht 162.6 cm; Wt 76.4 kg
[2020-09-29 10:16] LABS: BASO % 0.3 % (0.0-1.0); EOS # 0.1 10^3/uL (0.0-0.5); EOS % 1.6 % (0.0-3.0); HEMATOCRIT 40.2 % (36.0-47.0); HEMOGLOBIN 13.2 g/dl (12.0-15.5); LYMPH # 1.9 10^3/uL (1.5-5.0); LYMPH % 30.2 % (24.0-44.0); MEAN CORPUSCULAR HEMOGLOBIN 30.3 pg (27.0-33.0); MEAN CORPUSCULAR HGB CONC 32.8 g/dl (32.0-36.5); MEAN CORPUSCULAR VOLUME 92.2 fl (80.0-96.0); MONO # 0.7 10^3/uL (0.0-0.8); MONO % 10.6 % (0.0-5.0); NEUTROPHILS # 3.5 10^3/uL (1.5-8.5); PLATELET COUNT, AUTOMATED 268 10^3/uL (150-450); RED BLOOD COUNT 4.36 10^6/uL (4.00-5.40); WHITE BLOOD COUNT 6.1 10^3/uL (4.0-10.0)
--- NOTE | 2020-09-29 10:16 | REPVR ---
PROCEDURE INFORMATION: Exam: CT Head Without Contrast Exam date and time: 09/29/2020 10:00 AM Age: 45 years old Clinical indication: Pain; Headache; Additional info: Seizure TECHNIQUE: Imaging protocol: Computed tomography of the head without contrast. Radiation optimization: All CT scans at this facility use at least one of these dose optimization techniques: automated exposure control; mA and/or kV adjustment per patient size (includes targeted exams where dose is matched to clinical indication); or iterative reconstruction. COMPARISON: CT Head without contrast 05/14/2020 8:03 AM FINDINGS: Brain: Normal. No hemorrhage. Unremarkable white matter. No mass effect. Cerebral ventricles: No ventriculomegaly. Bones/joints: Unremarkable. No acute fracture. Paranasal sinuses: Visualized sinuses are unremarkable. No fluid levels. Mastoid air cells: Visualized mastoid air cells are well aerated. Soft tissues: Unremarkable. IMPRESSION: No acute intracranial abnormality. Electronically signed by: Yinka Pierce On 09/29/2020 10:15:43 AM
[2020-09-29 10:45] LABS: ALBUMIN 3.7 GM/DL (3.2-5.2); ALT/SGPT 30 U/L (12-78); BILIRUBIN,TOTAL 0.5 MG/DL (0.2-1.0); BLOOD UREA NITROGEN 18 MG/DL (7-18); CALCIUM LEVEL 8.8 MG/DL (8.5-10.1); CARBON DIOXIDE LEVEL 26 MEQ/L (21-32); CHLORIDE LEVEL 108 MEQ/L (98-107); CREATININE FOR GFR 0.74 MG/DL (0.55-1.30); GLOMERULAR FILTRATION RATE > 60.0 (>58); GLUCOSE, FASTING 91 MG/DL (70-100); POTASSIUM SERUM 3.6 MEQ/L (3.5-5.1); SODIUM LEVEL 139 MEQ/L (136-145); TOTAL PROTEIN 8.4 GM/DL (6.4-8.2)
[2020-09-29] MEDS ORDERED: ZONI25CA13 PO (12:20)
[2020-09-29 12:47] VITALS: BP 140/74
== END 2020-09-29 12:49 | disposition home or self-care (01) ==
LOC: EDBD 09:02 → M ED 09:02
DX: R56.9 Unspecified convulsions (principal); I10 Essential (primary) hypertension; Z79.899 Other long term (current) drug therapy; Z88.6 Allergy status to analgesic agent

== ENCOUNTER → 2020-11-09 | Outpatient (REF) | payer OTHER ==
[~2020-11-09] MED LIST changes: +ZONI25CA13 PO
[2020-11-10 12:17] LABS: HEMOGLOBIN A1c 5.5 %
[2020-11-10 12:37] LABS: BLOOD UREA NITROGEN 14 MG/DL (7-18); CALCIUM LEVEL 8.6 MG/DL (8.5-10.1); CARBON DIOXIDE LEVEL 29 MEQ/L (21-32); CHLORIDE LEVEL 107 MEQ/L (98-107); CREATININE FOR GFR 0.79 MG/DL (0.55-1.30); GLOMERULAR FILTRATION RATE > 60.0 (>58); GLUCOSE, FASTING 104 MG/DL (70-100); SODIUM LEVEL 141 MEQ/L (136-145)
== END ==
LOC: M SFHCCLAY 14:15
PROVIDERS: ATTEND Family Medicine
DX: I10 Essential (primary) hypertension (principal); R73.01 Impaired fasting glucose; E55.9 Vitamin D deficiency, unspecified; E03.9 Hypothyroidism, unspecified

== ENCOUNTER 2020-11-22 15:54 | Emergency (ER) | payer OTHER ==
[~2020-11-22] VITALS: Ht 165.1 cm; Wt 78.6 kg
[2020-11-22 16:42] LABS: BASO % 0.3 % (0.0-1.0); EOS # 0.1 10^3/uL (0.0-0.5); EOS % 1.5 % (0.0-3.0); HEMATOCRIT 39.2 % (36.0-47.0); HEMOGLOBIN 12.6 g/dl (12.0-15.5); LYMPH # 1.7 10^3/uL (1.5-5.0); LYMPH % 24.3 % (24.0-44.0); MEAN CORPUSCULAR HEMOGLOBIN 30.2 pg (27.0-33.0); MEAN CORPUSCULAR HGB CONC 32.1 g/dl (32.0-36.5); MONO # 0.6 10^3/uL (0.0-0.8); MONO % 9.1 % (0.0-5.0); NEUTROPHILS # 4.4 10^3/uL (1.5-8.5); NEUTROPHILS % 64.5 % (36.0-66.0); PLATELET COUNT, AUTOMATED 252 10^3/uL (150-450); RED BLOOD COUNT 4.17 10^6/uL (4.00-5.40); WHITE BLOOD COUNT 6.8 10^3/uL (4.0-10.0)
--- NOTE | 2020-11-22 17:00 | REP ---
INDICATION: seizure COMPARISON: 09/29/2020 TECHNIQUE: Axial noncontrast images from the skull base to the vertex with coronal reformations. This CT examination was performed using the following dose reduction techniques: Automated exposure control, adjustment of mA and/or kv according to the patient's size, and use of iterative reconstruction technique. FINDINGS: The ventricles, sulci, and cisterns are normal in position and appearance. Loza-white differentiation is maintained. No acute intracranial hemorrhage, mass/mass effect, pathology or trauma/injury. No evidence for acute infarction. No extra-axial fluid collection. Calvarium is intact. Paranasal sinuses and mastoid air cells are clear. IMPRESSION: Normal noncontrast head CT. No evidence for acute intracranial pathology or trauma/injury. <Electronically signed by Berry Sutton > 11/22/20 [id number]
--- NOTE | 2020-11-22 17:02 | REP ---
INDICATION: seizure COMPARISON: None. TECHNIQUE: Axial noncontrast images from the skull base to the thoracic inlet with coronal and sagittal re-formations This CT examination was performed using the following dose reduction techniques: Automated exposure control, adjustment of mA and/or kv according to the patient's size, and use of iterative reconstruction technique. FINDINGS: Normal alignment and lordosis is maintained. Cervical vertebral bodies including transverse processes and spinous processes are intact and there is no evidence for acute fracture / compression injury or subluxation. Spinal canal is patent. Posterior elements are intact. Paravertebral soft tissues are normal. IMPRESSION: No evidence for acute pathology or trauma/injury. <Electronically signed by Berry Sutton > 11/22/20 [id number]
--- NOTE | 2020-11-22 17:03 | REP ---
INDICATION: seizure and rib pain COMPARISON: 05/14/2020 TECHNIQUE: Portable AP view of the chest FINDINGS: The mediastinum and cardiac silhouette are stable and within normal limits for portable technique. The lung osorio are clear without acute consolidation, effusion, or pneumothorax. Skeletal structures are intact. IMPRESSION: No acute cardiopulmonary process appreciated. <Electronically signed by Berry Sutton > 11/22/20 [id number]
--- NOTE | 2020-11-22 17:03 | REP ---
INDICATION: seizure COMPARISON: None. TECHNIQUE: Internal rotation, external rotation, and Y view. FINDINGS: No acute fracture or dislocation. The acromioclavicular and glenohumeral joints are intact. No periarticular calcifications or degenerative changes are appreciated. Sub acromial space is normal. Surrounding soft tissues are unremarkable. IMPRESSION: Normal left shoulder radiographs. No acute fracture or dislocation. <Electronically signed by Berry Sutton > 11/22/20 [id number]
[2020-11-22] MEDS ORDERED: levETIRAcetam INJection 1,000 MG in D5W 100 ML IV ONE (17:30)
[2020-11-22 17:46] LABS: BLOOD UREA NITROGEN 15 MG/DL (7-18); CALCIUM LEVEL 8.2 MG/DL (8.5-10.1); CARBON DIOXIDE LEVEL 29 MEQ/L (21-32); CHLORIDE LEVEL 107 MEQ/L (98-107); CREATININE FOR GFR 0.69 MG/DL (0.55-1.30); GLOMERULAR FILTRATION RATE > 60.0 (>58); GLUCOSE, FASTING 88 MG/DL (70-100); POTASSIUM SERUM 4.2 MEQ/L (3.5-5.1); SODIUM LEVEL 139 MEQ/L (136-145)
[2020-11-22 18:30] VITALS: BP 158/95
== END 2020-11-22 19:23 | disposition home or self-care (01) ==
LOC: M ED 15:54 → EDBD 15:54 → M ED 19:23
DX: R56.9 Unspecified convulsions (principal); I10 Essential (primary) hypertension; S09.90XA Unspecified injury of head, initial encounter; S40.012A Contusion of left shoulder, initial encounter; X58.XXXA Exposure to other specified factors, initial encounter; Y92.89 Other specified places as the place of occurrence of the external cause; Y93.9 Activity, unspecified; Y99.0 Civilian activity done for income or pay; F32.9 Major depressive disorder, single episode, unspecified; Z79.899 Other long term (current) drug therapy; Z88.5 Allergy status to narcotic agent
CPT/HCPCS: 70450; 71045; 72125; 73030; 80048; 80203; 85025; 96365; 99284; J1953

== ENCOUNTER → 2021-05-13 | Outpatient (REF) | payer OTHER ==
[~2021-05-13] MED LIST changes: -LISI-542 PO; +LISI-898 PO
[2021-05-13 16:18] LABS: BASO % 0.4 % (0.0-1.0); EOS # 0.1 10^3/uL (0.0-0.5); EOS % 1.2 % (0.0-3.0); HEMATOCRIT 42.4 % (36.0-47.0); HEMOGLOBIN 13.8 g/dl (12.0-15.5); LYMPH # 2.2 10^3/uL (1.5-5.0); LYMPH % 24.3 % (24.0-44.0); MEAN CORPUSCULAR HEMOGLOBIN 30.4 pg (27.0-33.0); MEAN CORPUSCULAR HGB CONC 32.5 g/dl (32.0-36.5); MEAN CORPUSCULAR VOLUME 93.4 fl (80.0-96.0); MONO # 0.9 10^3/uL (0.0-0.8); MONO % 9.3 % (2.0-8.0); NEUTROPHILS # 5.9 10^3/uL (1.5-8.5); NEUTROPHILS % 64.4 % (36.0-66.0); PLATELET COUNT, AUTOMATED 286 10^3/uL (150-450); RED BLOOD COUNT 4.54 10^6/uL (4.00-5.40); WHITE BLOOD COUNT 9.2 10^3/uL (4.0-10.0)
[2021-05-13 16:50] LABS: BLOOD UREA NITROGEN 12 MG/DL (7-18); CALCIUM LEVEL 8.8 MG/DL (8.5-10.1); CARBON DIOXIDE LEVEL 27 MEQ/L (21-32); CHLORIDE LEVEL 106 MEQ/L (98-107); FREE T4 0.74 NG/DL (0.76-1.46); GLOMERULAR FILTRATION RATE > 60.0 (>58); GLUCOSE, FASTING 83 MG/DL (70-100); POTASSIUM SERUM 4.2 MEQ/L (3.5-5.1); SODIUM LEVEL 141 MEQ/L (136-145)
[2021-05-13 17:05] LABS: THYROGLOBULIN ANTIBODY 130.2 U/ML (<60.0); THYROID PEROXIDASE ANTIBODY > 1300.0 U/ML (<60.0)
[2021-05-13 17:19] LABS: CA 125 8.2 U/ML (<30.2)
== END ==
LOC: M SFHCCLAY 10:42
PROVIDERS: ATTEND Family Medicine
DX: N83.201 Unspecified ovarian cyst, right side (principal); E03.9 Hypothyroidism, unspecified; I10 Essential (primary) hypertension; E04.9 Nontoxic goiter, unspecified

== ENCOUNTER → 2021-05-31 | Outpatient (CLI) | payer OTHER ==
[~2021-05-31] MED LIST changes: +PROHANCE 279.3MG/ML 15ML VIAL ONE; +PROHANCE 279.3MG/ML 5ML VIAL ONE
--- NOTE | 2021-06-04 08:40 | REP ---
INDICATION: HEPATIC LESION. COMPARISON: CT, [facility], 04/21/2021. TECHNIQUE: Multiple sequences obtained in the axial coronal planes prior to and following the intravenous administration of 16 cc ProHance. FINDINGS: There are findings of diffuse heterogeneous fatty infiltration of the liver. There are scattered areas of parenchymal sparing, particularly near the gallbladder, as suggested on the prior CT scan. In the posterior right lobe of the liver there is a nodule identified which is hyperintense on T2 weighted images, and demonstrates rapid and persistent enhancement following the intravenous administration of gadolinium. This measures approximately 2 cm in maximum diameter and is consistent with a hemangioma. No other liver lesion is seen. The liver is mildly enlarged, the length is approximately 18 cm. The spleen, adrenals, pancreas and kidneys are unremarkable. No adenopathy or free fluid is seen. IMPRESSION: Mild hepatomegaly, with diffuse heterogeneous fatty infiltration of the liver, with areas of spared parenchyma at the gallbladder fossa. Hemangioma right lobe of liver. No other significant finding. <Electronically signed by Steve Loza > 06/04/21 [id number]
== END ==
LOC: M PLAIMG 12:29
PROVIDERS: ATTEND Family Medicine
DX: K76.0 Fatty (change of) liver, not elsewhere classified (principal); I10 Essential (primary) hypertension
CPT/HCPCS: 74183; A9576

== ENCOUNTER → 2021-06-09 | Outpatient (CLI) | payer OTHER ==
[~2021-06-09] MED LIST changes: -PROHANCE 279.3MG/ML 15ML VIAL ONE; -PROHANCE 279.3MG/ML 5ML VIAL ONE
--- NOTE | 2021-06-09 18:30 | REPVR ---
PROCEDURE INFORMATION: Exam: MR Head Without Contrast Exam date and time: 06/09/2021 4:13 PM Age: 46 years old Clinical indication: Condition or disease; Convulsions or seizures; Unspecified; Additional info: Seizure disorders TECHNIQUE: Imaging protocol: MR of the head without contrast. COMPARISON: CT Head without contrast 11/22/2020 4:39 PM FINDINGS: Brain: Stable 10 mm cystic lesion in the pineal region, statistically likely to represent a pineal cyst. No acute infarct or postictal signal changes identified on the diffusion-weighted imaging. No evidence of brain parenchymal edema or intracranial mass effect. The T2 weighted imaging demonstrates a few foci of increased signal intensity in the deep white matter, for example left prabhakar radiata and left external capsule, potentially trace chronic small vessel ischemic change. No evidence of mesial temporal sclerosis. No discrete cortical dysplasia or looney matter heterotopia identified. Cerebral ventricles: Normal. No ventriculomegaly. Bones/joints: Unremarkable. Paranasal sinuses: Normal as visualized. No acute sinusitis. Mastoid air cells: Normal as visualized. No mastoid effusion. Orbital cavity: Unremarkable. Soft tissues: Unremarkable. IMPRESSION: No acute intracranial abnormality seen. A structural cause for seizures is not identified. Electronically signed by: Fina Russ On 06/09/2021 18:30:14 PM
== END ==
LOC: M RAD 16:05
PROVIDERS: ATTEND Family Medicine
DX: G40.909 Epilepsy, unspecified, not intractable, without status epilepticus (principal); R51.9 Headache, unspecified

== ENCOUNTER 2022-01-18 08:05 | Emergency (ER) | payer OTHER ==
[~2022-01-18] VITALS: Ht 162.6 cm; Wt 83.0 kg
[~2022-01-18 08:05] MED LIST changes: -LISI-898 PO; +LISI5TAB11 PO
[2022-01-18] MEDS ORDERED: CARV12.5 PO (08:48)
[2022-01-18 09:02] LABS: BASO % 0.4 % (0.0-1.0); EOS # 0.2 10^3/uL (0.0-0.5); EOS % 2.3 % (0.0-3.0); HEMATOCRIT 37.9 % (36.0-47.0); HEMOGLOBIN 12.6 g/dl (12.0-15.5); LYMPH # 1.9 10^3/uL (1.5-5.0); LYMPH % 24.8 % (24.0-44.0); MEAN CORPUSCULAR HEMOGLOBIN 30.7 pg (27.0-33.0); MEAN CORPUSCULAR HGB CONC 33.2 g/dl (32.0-36.5); MEAN CORPUSCULAR VOLUME 92.2 fl (80.0-96.0); MONO # 0.6 10^3/uL (0.0-0.8); MONO % 7.2 % (2.0-8.0); NEUTROPHILS # 5.1 10^3/uL (1.5-8.5); NEUTROPHILS % 64.9 % (36.0-66.0); PLATELET COUNT, AUTOMATED 232 10^3/uL (150-450); RED BLOOD COUNT 4.11 10^6/uL (4.00-5.40); WHITE BLOOD COUNT 7.8 10^3/uL (4.0-10.0)
[2022-01-18] MEDS ORDERED: METOCLOPRAMIDE INJ 10MG/2ML VIAL (J2765 PER 1) IV ONE (09:10)
[2022-01-18] MEDS ORDERED: NS 1,000 ML IV ONE (09:10)
[2022-01-18] MEDS ORDERED: HYDROMORPHONE HCL 0.5 MG/ 0.5 ML SYRINGE (J1170 PER 1) IV PRN (09:10)
[2022-01-18 09:26] LABS: HCG, SERUM QUALITATIVE NEGATIVE (NEGATIVE)
[2022-01-18 09:27] LABS: CK-MB VALUE MASS 1.1 NG/ML (<3.6); MB/CK RELATIVE INDEX 1.38 (< OR =4)
[2022-01-18 09:28] LABS: ALBUMIN 3.4 GM/DL (3.2-5.2); ALT/SGPT 35 U/L (12-78); BILIRUBIN,DIRECT 0.1 MG/DL (0.0-0.2); BILIRUBIN,TOTAL 0.3 MG/DL (0.2-1.0); BLOOD UREA NITROGEN 15 MG/DL (7-18); CALCIUM LEVEL 8.3 MG/DL (8.5-10.1); CARBON DIOXIDE LEVEL 26 MEQ/L (21-32); CHLORIDE LEVEL 111 MEQ/L (98-107); CREATININE FOR GFR 0.67 MG/DL (0.55-1.30); GLOMERULAR FILTRATION RATE > 60.0 (>58); GLUCOSE, FASTING 118 MG/DL (70-100); LIPASE 71 U/L (73-393); POTASSIUM SERUM 3.7 MEQ/L (3.5-5.1); SODIUM LEVEL 140 MEQ/L (136-145); TOTAL PROTEIN 7.3 GM/DL (6.4-8.2)
[2022-01-18] MEDS ORDERED: ISOVUE-370 76% 100ML VIAL As Ordered ONE (09:34)
[2022-01-18 11:16] LABS: RSV AMPLIFICATION NEGATIVE (NEGATIVE)
[2022-01-18 13:00] VITALS: BP 133/67
[2022-01-18] MEDS ORDERED: REGL5TAB2 PO (13:06)
[2022-01-18] MEDS ORDERED: KETO10TAB PO (13:06)
== END 2022-01-18 13:36 | disposition home or self-care (01) ==
LOC: M ED 08:05 → EDBD 08:05 → M ED 13:36
DX: N83.201 Unspecified ovarian cyst, right side (principal); I10 Essential (primary) hypertension; E03.9 Hypothyroidism, unspecified; G40.909 Epilepsy, unspecified, not intractable, without status epilepticus; G43.909 Migraine, unspecified, not intractable, without status migrainosus; Z79.899 Other long term (current) drug therapy; Z79.890 Hormone replacement therapy; Z88.5 Allergy status to narcotic agent; Z91.040 Latex allergy status; Z91.048 Other nonmedicinal substance allergy status
CPT/HCPCS: 74177; 76856; 80048; 80076; 81001; 82550; 82553; 83605; 83690; 84703; 85025; 87631; 93005; 93041; 96361; 96374; 99285; J2765; Q9967

== ENCOUNTER → 2022-03-31 | Outpatient (CLI) | payer OTHER ==
[~2022-03-31] MED LIST changes: +CARV12.5 PO; +KETO10TAB PO; +PROHANCE 279.3MG/ML 15ML VIAL As Ordered ONE; +PROHANCE 279.3MG/ML 5ML VIAL As Ordered ONE; +REGL5TAB2 PO
== END ==
LOC: M RAD 12:45
PROVIDERS: ATTEND Family Medicine
DX: D37.8 Neoplasm of uncertain behavior of other specified digestive organs (principal); K76.0 Fatty (change of) liver, not elsewhere classified
CPT/HCPCS: 74183; A9576

== ENCOUNTER → 2022-05-31 | Outpatient (REF) | payer OTHER ==
[~2022-05-31] MED LIST changes: -PROHANCE 279.3MG/ML 15ML VIAL As Ordered ONE; -PROHANCE 279.3MG/ML 5ML VIAL As Ordered ONE
[2022-05-31 17:16] LABS: BASO % 0.4 % (0.0-1.0); EOS # 0.2 10^3/uL (0.0-0.5); EOS % 2.1 % (0.0-3.0); HEMATOCRIT 42.4 % (36.0-47.0); HEMOGLOBIN 14.1 g/dl (12.0-15.5); LYMPH # 2.2 10^3/uL (1.5-5.0); LYMPH % 27.6 % (24.0-44.0); MEAN CORPUSCULAR HEMOGLOBIN 30.7 pg (27.0-33.0); MEAN CORPUSCULAR HGB CONC 33.3 g/dl (32.0-36.5); MEAN CORPUSCULAR VOLUME 92.2 fl (80.0-96.0); MONO # 0.7 10^3/uL (0.0-0.8); MONO % 9.1 % (2.0-8.0); NEUTROPHILS # 4.9 10^3/uL (1.5-8.5); NEUTROPHILS % 60.4 % (36.0-66.0); PLATELET COUNT, AUTOMATED 285 10^3/uL (150-450); WHITE BLOOD COUNT 8.1 10^3/uL (4.0-10.0)
[2022-05-31 18:08] LABS: HEMOGLOBIN A1c 5.2 %
[2022-05-31 18:29] LABS: ALBUMIN 3.7 GM/DL (3.2-5.2); ALT/SGPT 32 U/L (12-78); BILIRUBIN,TOTAL 0.3 MG/DL (0.2-1.0); BLOOD UREA NITROGEN 12 MG/DL (7-18); CALCIUM LEVEL 9.4 MG/DL (8.5-10.1); CARBON DIOXIDE LEVEL 27 MEQ/L (21-32); CHLORIDE LEVEL 109 MEQ/L (98-107); CREATININE FOR GFR 0.71 MG/DL (0.55-1.30); FREE T4 0.64 NG/DL (0.76-1.46); GLOMERULAR FILTRATION RATE > 60.0 (>58); GLUCOSE, FASTING 77 MG/DL (70-100); POTASSIUM SERUM 4.4 MEQ/L (3.5-5.1); SODIUM LEVEL 140 MEQ/L (136-145); TOTAL PROTEIN 8.2 GM/DL (6.4-8.2)
[2022-05-31 19:20] LABS: TOTAL T3 120.7 NG/DL (60.0-181.0)
== END ==
LOC: M SFHCCLAY 15:02
PROVIDERS: ATTEND Family Medicine
DX: E01.0 Iodine-deficiency related diffuse (endemic) goiter (principal); I10 Essential (primary) hypertension; R73.01 Impaired fasting glucose

== ENCOUNTER → 2022-06-23 | Outpatient (CLI) | payer OTHER | LOC: M RAD 06:32 | PROVIDERS: ATTEND Family Medicine | DX: E01.0 Iodine-deficiency related diffuse (endemic) goiter (principal); R68.89 Other general symptoms and signs ==

== ENCOUNTER 2022-07-03 11:41 | Emergency (ER) | payer OTHER ==
[~2022-07-03] VITALS: Ht 165.1 cm; Wt 83.8 kg
[2022-07-03] MEDS ORDERED: CLON0.5T2 (12:05)
[2022-07-03] MEDS ORDERED: LISI40TA4 (12:05)
[2022-07-03] MEDS ORDERED: CARV25TA (12:05)
[2022-07-03] MEDS ORDERED: LEVE10003 (12:05)
[2022-07-03] MEDS ORDERED: EFFE150C2 (12:05)
[2022-07-03] MEDS ORDERED: LEVO200T4 (12:05)
[2022-07-03] MEDS ORDERED: AMLO2.5T3 (12:05)
[2022-07-03] MEDS ORDERED: levETIRAcetam INJection 1,000 MG in D5W 100 ML IV ONE (12:35)
[2022-07-03] MEDS ORDERED: NS 1,000 ML IV ONE (12:35)
[2022-07-03 12:44] LABS: BASO % 0.3 % (0.0-1.0); EOS # 0.1 10^3/uL (0.0-0.5); EOS % 1.6 % (0.0-3.0); HEMATOCRIT 38.2 % (36.0-47.0); HEMOGLOBIN 12.6 g/dl (12.0-15.5); LYMPH # 1.5 10^3/uL (1.5-5.0); LYMPH % 24.2 % (24.0-44.0); MEAN CORPUSCULAR HEMOGLOBIN 30.4 pg (27.0-33.0); MONO # 0.5 10^3/uL (0.0-0.8); MONO % 8.2 % (2.0-8.0); NEUTROPHILS % 65.4 % (36.0-66.0); PLATELET COUNT, AUTOMATED 251 10^3/uL (150-450); RED BLOOD COUNT 4.15 10^6/uL (4.00-5.40); WHITE BLOOD COUNT 6.1 10^3/uL (4.0-10.0)
[2022-07-03 13:27] LABS: ALBUMIN 3.4 GM/DL (3.2-5.2); ALT/SGPT 35 U/L (12-78); BILIRUBIN,DIRECT 0.1 MG/DL (0.0-0.2); BILIRUBIN,TOTAL 0.2 MG/DL (0.2-1.0); BLOOD UREA NITROGEN 12 MG/DL (7-18); CALCIUM LEVEL 8.4 MG/DL (8.5-10.1); CARBON DIOXIDE LEVEL 26 MEQ/L (21-32); CHLORIDE LEVEL 110 MEQ/L (98-107); CREATININE FOR GFR 0.73 MG/DL (0.55-1.30); GLOMERULAR FILTRATION RATE > 60.0 (>58); GLUCOSE, FASTING 89 MG/DL (70-100); POTASSIUM SERUM 3.3 MEQ/L (3.5-5.1); SODIUM LEVEL 140 MEQ/L (136-145); TOTAL PROTEIN 7.5 GM/DL (6.4-8.2)
[2022-07-03] MEDS ORDERED: KEPP10002 PO (14:21)
[2022-07-03 14:29] VITALS: BP 160/100
== END 2022-07-03 14:34 | disposition home or self-care (01) ==
LOC: EDBD 11:41 → M ED 13:43
DX: G40.909 Epilepsy, unspecified, not intractable, without status epilepticus (principal); I10 Essential (primary) hypertension; E03.9 Hypothyroidism, unspecified; F33.9 Major depressive disorder, recurrent, unspecified; Z88.5 Allergy status to narcotic agent; Z91.040 Latex allergy status; Z91.048 Other nonmedicinal substance allergy status; Z79.899 Other long term (current) drug therapy; Z79.890 Hormone replacement therapy
CPT/HCPCS: 70450; 80048; 80076; 83605; 84436; 84443; 85025; 93005; 93041; 94760; 96365; 99285; J1953

== ENCOUNTER → 2022-07-22 | Outpatient (REF) | payer OTHER ==
[~2022-07-22] MED LIST changes: +AMLO2.5T3; +CARV25TA; +CLON0.5T2; +EFFE150C2; +KEPP10002 PO; +LEVE10003; +LEVO200T4; +LISI40TA4
[2022-07-22 18:17] LABS: FREE T4 1.24 NG/DL (0.76-1.46); THYROID STIMULATING HORMONE 4.16 uIU/ML (0.358-3.740)
== END ==
LOC: M SFHCCLAY 13:56
PROVIDERS: ATTEND Family Medicine
DX: E03.9 Hypothyroidism, unspecified (principal); R20.2 Paresthesia of skin

== ENCOUNTER → 2022-09-27 | Outpatient (CLI) | payer OTHER ==
[~2022-09-27] MED LIST changes: +BARIUM SULFATE 700 MG TABLET (E-Z-DISK) As Ordered ONE; +E-Z-PAQUE 96% w/w SUSP 176GM BTL As Ordered ONE; +VARIBAR NECTAR 40% w/v 240ML SUSP BTL As Ordered ONE; +VARIBAR PUDDING 40% w/v 230ML TUBE As Ordered ONE
== END ==
LOC: M RAD 10:33
PROVIDERS: ATTEND Family Medicine
DX: R13.14 Dysphagia, pharyngoesophageal phase (principal)

== ENCOUNTER → 2023-05-02 | Outpatient (REF) | payer OTHER ==
[~2023-05-02] MED LIST changes: -BARIUM SULFATE 700 MG TABLET (E-Z-DISK) As Ordered ONE; -E-Z-PAQUE 96% w/w SUSP 176GM BTL As Ordered ONE; -VARIBAR NECTAR 40% w/v 240ML SUSP BTL As Ordered ONE; -VARIBAR PUDDING 40% w/v 230ML TUBE As Ordered ONE
[2023-05-02 11:43] LABS: BASO % 0.5 % (0.0-1.0); EOS # 0.2 10^3/uL (0.0-0.5); EOS % 2.5 % (0.0-3.0); HEMATOCRIT 40.8 % (36.0-47.0); HEMOGLOBIN 13.4 g/dl (12.0-15.5); LYMPH # 1.7 10^3/uL (1.5-5.0); LYMPH % 26.7 % (24.0-44.0); MEAN CORPUSCULAR HEMOGLOBIN 30.9 pg (27.0-33.0); MEAN CORPUSCULAR HGB CONC 32.8 g/dl (32.0-36.5); MEAN CORPUSCULAR VOLUME 94.2 fl (80.0-96.0); MONO # 0.6 10^3/uL (0.0-0.8); MONO % 9.6 % (2.0-8.0); NEUTROPHILS # 3.9 10^3/uL (1.5-8.5); NEUTROPHILS % 60.4 % (36.0-66.0); PLATELET COUNT, AUTOMATED 267 10^3/uL (150-450); RED BLOOD COUNT 4.33 10^6/uL (4.00-5.40); WHITE BLOOD COUNT 6.5 10^3/uL (4.0-10.0)
[2023-05-02 12:08] LABS: ALBUMIN 3.8 G/DL (3.2-5.2); ALKALINE PHOSPHATASE 67 U/L (46-116); ALT/SGPT 21 U/L (7.0-40); AST/SGOT 12 U/L (<34); BILIRUBIN,TOTAL 0.5 MG/DL (0.3-1.2); BLOOD UREA NITROGEN 18 MG/DL (9-23); CALCIUM LEVEL 8.6 MG/DL (8.5-10.1); CARBON DIOXIDE LEVEL 26 MMOL/L (20-31); CHLORIDE LEVEL 108 MMOL/L (98-107); CREATININE FOR GFR 0.69 MG/DL (0.55-1.30); GLOMERULAR FILTRATION RATE > 60.0 (>58); GLUCOSE, FASTING 86 MG/DL (60-100); POTASSIUM SERUM 3.9 MMOL/L (3.5-5.1); SODIUM LEVEL 140 MMOL/L (136-145); TOTAL PROTEIN 7.5 G/DL (5.7-8.2)
[2023-05-02 12:12] LABS: FREE T4 0.72 NG/DL (0.89-1.76); THYROID STIMULATING HORMONE 7.034 uIU/ML (0.55-4.78)
== END ==
LOC: M SFHCCLAY 09:39
PROVIDERS: ATTEND Physician Assistant Medical
DX: R55 Syncope and collapse (principal)

== ENCOUNTER → 2024-01-25 | Outpatient (CLI) | payer OTHER ==
[~2024-01-25] MED LIST changes: -EFFE150C2; +EFFE150C3; +PROHANCE 279.3MG/ML 15ML VIAL ONE
== END ==
LOC: M PLAIMG 09:24
PROVIDERS: ATTEND Family Medicine
DX: G43.109 Migraine with aura, not intractable, without status migrainosus (principal); D35.4 Benign neoplasm of pineal gland

== ENCOUNTER 2024-03-01 06:32 | Emergency (ER) | payer OTHER ==
[~2024-03-01] VITALS: Ht 163.8 cm; Wt 80.5 kg
[~2024-03-01 06:32] MED LIST changes: -CARV25TA; +CARV25TA PO; -LISI40TA4; +LISI40TA4 PO; -PROHANCE 279.3MG/ML 15ML VIAL ONE
[2024-03-01] MEDS ORDERED: LAMO25TA4 PO (06:39)
[2024-03-01] MEDS ORDERED: AMLO1TAB25 PO (06:39)
[2024-03-01 07:07] LABS: BASO # 0.1 10^3/uL (0.0-0.2); BASO % 0.8 % (0.0-1.0); EOS # 0.6 10^3/uL (0.0-0.5); EOS % 9.6 % (0.0-3.0); HEMATOCRIT 39.2 % (36.0-47.0); HEMOGLOBIN 13.2 g/dl (12.0-15.5); LYMPH # 1.9 10^3/uL (1.5-5.0); LYMPH % 29.6 % (24.0-44.0); MEAN CORPUSCULAR HEMOGLOBIN 31.4 pg (27.0-33.0); MEAN CORPUSCULAR HGB CONC 33.7 g/dl (32.0-36.5); MEAN CORPUSCULAR VOLUME 93.1 fl (80.0-96.0); MONO # 0.6 10^3/uL (0.0-0.8); MONO % 9.4 % (2.0-8.0); NEUTROPHILS # 3.2 10^3/uL (1.5-8.5); NEUTROPHILS % 50.3 % (36.0-66.0); PLATELET COUNT, AUTOMATED 305 10^3/uL (150-450); RED BLOOD COUNT 4.21 10^6/uL (4.00-5.40); WHITE BLOOD COUNT 6.4 10^3/uL (4.0-10.0)
[2024-03-01 07:23] LABS: HCG, SERUM QUALITATIVE NEGATIVE (NEGATIVE)
[2024-03-01 07:32] LABS: ALBUMIN 3.2 G/DL (3.2-5.2); ALKALINE PHOSPHATASE 137 U/L (46-116); ALT/SGPT 79 U/L (7.0-40); AST/SGOT 49 U/L (<34); BILIRUBIN,DIRECT 0.2 MG/DL (<0.4); BILIRUBIN,TOTAL 0.4 MG/DL (0.3-1.2); BLOOD UREA NITROGEN 18 MG/DL (9-23); CARBON DIOXIDE LEVEL 26 MMOL/L (20-31); CHLORIDE LEVEL 107 MMOL/L (98-107); CK-MB VALUE MASS 1.3 NG/ML (<3.6); CPK CREATINE PHOSPHOKINASE 89 U/L (34-145); GLOMERULAR FILTRATION RATE > 60.0 (>58); GLUCOSE, FASTING 92 MG/DL (60-100); MB/CK RELATIVE INDEX 1.46 (< OR =4); POTASSIUM SERUM 3.6 MMOL/L (3.5-5.1); SODIUM LEVEL 137 MMOL/L (136-145); TOTAL PROTEIN 7.8 G/DL (5.7-8.2)
[2024-03-01 07:34] LABS: FREE T4 0.73 NG/DL (0.89-1.76)
[2024-03-01 07:35] LABS: THYROID STIMULATING HORMONE 12.545 uIU/ML (0.55-4.78)
[2024-03-01 07:44] LABS: ETHYL ALCOHOL (ETHANOL) 0.005 % (0.000-0.010)
[2024-03-01 07:46] LABS: SALICYLATE LEVEL < 3.0 MG/DL (<30)
[2024-03-01 08:27] LABS: OSMOLALITY SERUM 295 MOSM/KG (275-295)
[2024-03-01] MEDS: ACETAMINOPHEN 500 MG TAB PO ONE (08:33)
[2024-03-01 08:44] LABS: INR 1.1; PARTIAL THROMBOPLASTIN TIME 29.1 SECONDS (24.8-34.2); PROTHROMBIN TIME 13.9 SECONDS (12.5-14.5)
[2024-03-01] MEDS ORDERED: VENL225T32 PO (08:48)
[2024-03-01] MEDS ORDERED: HOME MED LIST COMPLETE! XX SCH (08:50)
[2024-03-01 09:13] LABS: MAGNESIUM LEVEL 2.2 MG/DL (1.8-2.4)
[2024-03-01] MEDS ORDERED: SUMAtriptan SUCCINATE 6MG/0.5ML VIAL SC ONE (11:50)
[2024-03-01 13:13] VITALS: BP 130/80; TEMP 98.2; O2SAT 98
== END 2024-03-01 13:13 | disposition home or self-care (01) ==
LOC: M ED 06:32
DX: H81.10 Benign paroxysmal vertigo, unspecified ear (principal); R20.2 Paresthesia of skin; I10 Essential (primary) hypertension; E03.9 Hypothyroidism, unspecified; F32.A Depression, unspecified; G40.909 Epilepsy, unspecified, not intractable, without status epilepticus; Z91.040 Latex allergy status; Z88.8 Allergy status to other drugs, medicaments and biological substances; Z79.899 Other long term (current) drug therapy

== ENCOUNTER → 2024-04-11 | Outpatient (REF) | payer OTHER ==
[~2024-04-11] MED LIST changes: +AMLO1TAB25 PO; +LAMO25TA4 PO; +VENL225T32 PO
[2024-04-11 18:34] LABS: HEMOGLOBIN A1c 5.4 % (4.0-6.0)
[2024-04-11 18:51] LABS: C REACTIVE PROTEIN QUANTITATIV 1.6 MG/DL (<1.0)
[2024-04-11 18:54] LABS: CHOLESTEROL RISK RATIO 3.02 (<5); FREE T4 0.77 NG/DL (0.89-1.76); HDL CHOLESTEROL 54.2 MG/DL (>40); LDL CHOLESTEROL 91.4 MG/DL (<100); NON-HDL-C 109.8 MG/DL; THYROID STIMULATING HORMONE 6.045 uIU/ML (0.55-4.78)
[2024-04-11 18:56] LABS: TOTAL T3 130.1 NG/DL (60.0-181.0)
[2024-04-13 21:07] LABS: VITAMIN D 1,25 DIHYDROXY 52.6 pg/mL (24.8-81.5)
== END ==
LOC: M SFHCCLAY 14:28
PROVIDERS: ATTEND Family Medicine
DX: G40.909 Epilepsy, unspecified, not intractable, without status epilepticus (principal); E03.9 Hypothyroidism, unspecified; R73.01 Impaired fasting glucose; E55.9 Vitamin D deficiency, unspecified; R76.8 Other specified abnormal immunological findings in serum; I10 Essential (primary) hypertension

== ENCOUNTER 2024-05-03 11:30 | Emergency (ER) | payer OTHER ==
[~2024-05-03] VITALS: Ht 162.6 cm; Wt 81.1 kg
[2024-05-03] MEDS: diphenhydrAMINE 50MG/ML VIAL IV STA (12:26)
[2024-05-03] MEDS: FAMOTIDINE IV BAG 20 MG in IV 1 EA IV ONE (12:26)
[2024-05-03] MEDS: methylPREDNISolone 125MG 2ML VIAL IV ONE (12:26)
[2024-05-03] MEDS: NS 1,000 ML IV ONE (12:27)
[2024-05-03] MEDS: EPINEPHrine INJ 1 MG/ML 1ML AMP IM STA (12:27)
[2024-05-03] MEDS: MAALOX 30 ML SUSP *UDC PO ONE (13:18)
[2024-05-03] MEDS: NS 500 ML IV ONE (16:18)
[2024-05-03] MEDS ORDERED: EPIP0.3I2 IM (17:52)
[2024-05-03] MEDS ORDERED: PEPC1TAB5 PO (17:52)
[2024-05-03] MEDS ORDERED: BENA25CA4 PO (17:52)
[2024-05-03 18:46] VITALS: BP 133/71; TEMP 98.7; O2SAT 98
== END 2024-05-03 18:49 | disposition home or self-care (01) ==
LOC: M ED 11:30
DX: T78.40XA Allergy, unspecified, initial encounter (principal); L50.1 Idiopathic urticaria; I10 Essential (primary) hypertension; E03.9 Hypothyroidism, unspecified; F32.A Depression, unspecified; Z87.892 Personal history of anaphylaxis; Z91.040 Latex allergy status; Z91.048 Other nonmedicinal substance allergy status; Z88.5 Allergy status to narcotic agent; Z79.899 Other long term (current) drug therapy
CPT/HCPCS: 87880; 96365; 96366; 96372; 96374; 99284; J0171; J1200; J2919; S0028

== ENCOUNTER → 2024-08-22 | Outpatient (CLI) | payer OTHER ==
[~2024-08-22] MED LIST changes: +BENA25CA4 PO; +EPIP0.3I2 IM; +PEPC1TAB5 PO; +PROHANCE 279.3MG/ML 15ML VIAL As Ordered ONE
== END ==
LOC: M RAD 08:52
PROVIDERS: ATTEND Family Medicine
DX: G40.909 Epilepsy, unspecified, not intractable, without status epilepticus (principal); R51.9 Headache, unspecified; H53.9 Unspecified visual disturbance
CPT/HCPCS: 70553; A9576

== ENCOUNTER 2024-08-30 12:11 | Emergency (ER) | payer OTHER ==
[~2024-08-30] VITALS: Ht 162.6 cm; Wt 83.2 kg
[~2024-08-30 12:11] MED LIST changes: -PROHANCE 279.3MG/ML 15ML VIAL As Ordered ONE
[2024-08-30] MEDS ORDERED: CLON1TAB8 (12:25)
[2024-08-30] MEDS ORDERED: VENL37.598 PO (12:25)
[2024-08-30] MEDS ORDERED: CELE1CAP99 PO (12:25)
[2024-08-30] MEDS ORDERED: LEVO300T21 PO (12:25)
[2024-08-30] MEDS ORDERED: ASPI81TA26 PO (13:37)
[2024-08-30 13:45] VITALS: BP 115/62; TEMP 96.5; O2SAT 94
== END 2024-08-30 13:57 | disposition home or self-care (01) ==
LOC: M ED 12:11
DX: F41.9 Anxiety disorder, unspecified (principal); G40.909 Epilepsy, unspecified, not intractable, without status epilepticus; I10 Essential (primary) hypertension; Z88.8 Allergy status to other drugs, medicaments and biological substances; Z91.040 Latex allergy status; Z79.1 Long term (current) use of non-steroidal anti-inflammatories (NSAID); Z79.899 Other long term (current) drug therapy

== ENCOUNTER → 2024-09-18 | Outpatient (REF) | payer OTHER ==
[~2024-09-18] MED LIST changes: +ASPI81TA26 PO; +CELE1CAP99 PO; +CLON1TAB8; +LEVO300T21 PO; +VENL37.598 PO
[2024-09-18 13:03] LABS: AMORPHOUS SEDIMENT MODERATE (NEGATIVE); APPEARANCE, URINE TURBID (CLEAR); BACTERIA, URINE AUTO NEGATIVE (NEGATIVE); BILIRUBIN, URINE AUTO NEGATIVE (NEGATIVE); BLOOD, URINE BLOOD 1+ (NEGATIVE); COLOR, URINE AMBER (YELLOW); GLUCOSE, URINE (UA) AUTO NEGATIVE (NEGATIVE); KETONE, URINE AUTO NEGATIVE (NEGATIVE); LEUKOCYTE ESTERASE, URINE AUTO 1+ (NEGATIVE); MUCUS, URINE MODERATE (NEGATIVE); NITRITE, URINE AUTO NEGATIVE (NEGATIVE); PROTEIN, URINE AUTO NEGATIVE (NEGATIVE); RBC, URINE AUTO 1 /HPF (0-3); SPECIFIC GRAVITY URINE AUTO 1.023 (1.002-1.035); SQUAMOUS EPITHELIAL CELL UR AU 11 /HPF (0-6); WBC, URINE AUTO 6 /HPF (0-3)
[2024-09-18 13:44] LABS: BASO % 0.6 % (0.0-1.0); EOS # 0.5 10^3/uL (0.0-0.5); EOS % 7.9 % (0.0-3.0); HEMATOCRIT 41.7 % (36.0-47.0); HEMOGLOBIN 13.6 g/dl (12.0-15.5); LYMPH # 1.6 10^3/uL (1.5-5.0); MEAN CORPUSCULAR HEMOGLOBIN 31.6 pg (27.0-33.0); MEAN CORPUSCULAR HGB CONC 32.6 g/dl (32.0-36.5); MEAN CORPUSCULAR VOLUME 96.8 fl (80.0-96.0); MONO # 0.4 10^3/uL (0.0-0.8); MONO % 6.7 % (2.0-8.0); NEUTROPHILS # 3.8 10^3/uL (1.5-8.5); NEUTROPHILS % 59.5 % (36.0-66.0); PLATELET COUNT, AUTOMATED 257 10^3/uL (150-450); RED BLOOD COUNT 4.31 10^6/uL (4.00-5.40); WHITE BLOOD COUNT 6.3 10^3/uL (4.0-10.0)
[2024-09-18 13:57] LABS: ERYTHROCYTE SEDIMENTATION RATE 116 mm/hr (0-20)
[2024-09-18 14:03] LABS: TOTAL PROTEIN,RANDOM URINE 23.6 MG/DL (0.0-14.0)
[2024-09-18 14:08] LABS: CREATININE,RANDOM URINE 202.8 MG/DL
[2024-09-18 14:10] LABS: COMPLEMENT C3 171.8 MG/DL (90.0-170.0); COMPLEMENT C4 9.3 MG/DL (12-36); IRON (FE) 203 UG/DL (50-170); PERCENT SATURATION 65.7 % (13.2-45.0); TOTAL IRON BINDING CAPACITY 309 UG/DL (250-425)
[2024-09-18 14:11] LABS: ALBUMIN 3.2 G/DL (3.2-5.2); ALKALINE PHOSPHATASE 277 U/L (35-104); ALT/SGPT 293 U/L (7.0-40); AST/SGOT 194 U/L (<34); BILIRUBIN,DIRECT 0.7 MG/DL (<0.4); BILIRUBIN,TOTAL 1.5 MG/DL (0.3-1.2); BLOOD UREA NITROGEN 14 MG/DL (9-23); CALCIUM LEVEL 8.8 MG/DL (8.5-10.1); CARBON DIOXIDE LEVEL 26 MMOL/L (20-31); CHLORIDE LEVEL 105 MMOL/L (98-107); CREATININE FOR GFR 0.62 MG/DL (0.55-1.30); GLOMERULAR FILTRATION RATE > 60.0 (>58); GLUCOSE, FASTING 72 MG/DL (60-100); MAGNESIUM LEVEL 2.2 MG/DL (1.8-2.4); PHOSPHORUS LEVEL 3.5 MG/DL (2.5-4.9); POTASSIUM SERUM 4.1 MMOL/L (3.5-5.1); SODIUM LEVEL 136 MMOL/L (136-145); TOTAL PROTEIN 9.4 G/DL (5.7-8.2)
[2024-09-18 14:12] LABS: FERRITIN 313.7 NG/ML (7.3-270.7); VITAMIN B12 LEVEL 775 PG/ML (211-911)
[2024-09-19 14:23] LABS: EBV AB TO NUCLEAR ANTIGEN < 18.00 U/mL (<18.00); EBV VIRAL CAPSID AG IGG < 18.00 U/mL (<18.00); EBV VIRAL CAPSID AG IGM < 36.00 U/mL (<36.00)
[2024-09-23 15:38] LABS: NICOTINAMIDE 43 ng/mL (see note); NICOTINIC ACID < 20 ng/mL (see note); VITAMIN B2 (RIBOFLAVIN) 34.9 nmol/L (6.2-39.0)
[2024-09-23 17:27] LABS: COMPLEMENT TOTAL (CH50) 60 U/mL (31-60)
== END ==
LOC: M SFHCRHEU 11:01
PROVIDERS: ATTEND Internal Medicine
DX: R76.8 Other specified abnormal immunological findings in serum (principal); R53.82 Chronic fatigue, unspecified; M25.48 Effusion, other site

== ENCOUNTER → 2024-09-24 | Outpatient (CLI) | payer OTHER | LOC: M SLEEP HO 11:21 | PROVIDERS: ATTEND Internal Medicine | DX: R53.82 Chronic fatigue, unspecified (principal) ==

== ENCOUNTER → 2024-09-24 | Outpatient (REF) | payer OTHER ==
[2024-09-24 14:15] LABS: ALBUMIN 3.2 G/DL (3.2-5.2); ALKALINE PHOSPHATASE 292 U/L (35-104); ALT/SGPT 302 U/L (7.0-40); AST/SGOT 221 U/L (<34); BILIRUBIN,TOTAL 0.9 MG/DL (0.3-1.2); BLOOD UREA NITROGEN 18 MG/DL (9-23); CALCIUM LEVEL 9.3 MG/DL (8.5-10.1); CARBON DIOXIDE LEVEL 25 MMOL/L (20-31); CHLORIDE LEVEL 108 MMOL/L (98-107); GLOMERULAR FILTRATION RATE > 60.0 (>58); GLUCOSE, FASTING 87 MG/DL (60-100); POTASSIUM SERUM 3.9 MMOL/L (3.5-5.1); SODIUM LEVEL 138 MMOL/L (136-145); TOTAL PROTEIN 9.2 G/DL (5.7-8.2)
[2024-09-24 14:27] LABS: HEPATITIS B SURFACE ANTIGEN NEGATIVE (NEGATIVE)
[2024-09-24 14:49] LABS: HEPATITIS B CORE ANTIBODY IGM NEGATIVE (NEGATIVE); HEPATITIS C VIRUS ABY INDEX 0.08 INDEX (<0.8)
== END ==
LOC: M SFHCCLAY 09:33
PROVIDERS: ATTEND Family Medicine
DX: R79.89 Other specified abnormal findings of blood chemistry (principal); K76.0 Fatty (change of) liver, not elsewhere classified; M25.48 Effusion, other site

== ENCOUNTER 2024-09-28 12:30 | Emergency (ER) | payer OTHER ==
[~2024-09-28] VITALS: Ht 162.6 cm; Wt 81.8 kg
[2024-09-28 13:27] LABS: BASO # 0.1 10^3/uL (0.0-0.2); BASO % 0.8 % (0.0-1.0); EOS # 0.5 10^3/uL (0.0-0.5); EOS % 7.3 % (0.0-3.0); HEMATOCRIT 39.6 % (36.0-47.0); HEMOGLOBIN 13.3 g/dl (12.0-15.5); LYMPH # 1.8 10^3/uL (1.5-5.0); LYMPH % 27.4 % (24.0-44.0); MEAN CORPUSCULAR HEMOGLOBIN 31.6 pg (27.0-33.0); MEAN CORPUSCULAR HGB CONC 33.6 g/dl (32.0-36.5); MEAN CORPUSCULAR VOLUME 94.1 fl (80.0-96.0); MONO # 0.6 10^3/uL (0.0-0.8); MONO % 9.9 % (2.0-8.0); NEUTROPHILS # 3.5 10^3/uL (1.5-8.5); NEUTROPHILS % 54.3 % (36.0-66.0); PLATELET COUNT, AUTOMATED 281 10^3/uL (150-450); RED BLOOD COUNT 4.21 10^6/uL (4.00-5.40); WHITE BLOOD COUNT 6.5 10^3/uL (4.0-10.0)
[2024-09-28 13:53] LABS: LIPASE 34 U/L (12-53)
[2024-09-28 13:55] LABS: ALBUMIN 3.1 G/DL (3.2-5.2); ALKALINE PHOSPHATASE 302 U/L (35-104); ALT/SGPT 273 U/L (7.0-40); AST/SGOT 189 U/L (<34); BILIRUBIN,DIRECT 0.5 MG/DL (<0.4); BILIRUBIN,TOTAL 0.9 MG/DL (0.3-1.2)
[2024-09-28 13:58] LABS: HCG, SERUM QUALITATIVE NEGATIVE (NEGATIVE)
[2024-09-28] MEDS ORDERED: ISOVUE-370 76% 100ML VIAL As Ordered ONE (14:17)
[2024-09-28] MEDS: KETOROLAC 30 MG/ML 1ML VIAL IV ONE (14:46)
[2024-09-28] MEDS: MAGNESIUM CITRATE 300ML BTL PO ONE (16:10)
[2024-09-28] MEDS: METOCLOPRAMIDE INJ 10MG/2ML VIAL IV ONE (16:10)
[2024-09-28 16:57] VITALS: BP 133/83; TEMP 98.2; O2SAT 99
== END 2024-09-28 17:11 | disposition home or self-care (01) ==
LOC: M ED 12:30
DX: K59.00 Constipation, unspecified (principal); D18.03 Hemangioma of intra-abdominal structures; R10.11 Right upper quadrant pain; G40.89 Other seizures; Z88.5 Allergy status to narcotic agent; Z91.040 Latex allergy status; Z79.1 Long term (current) use of non-steroidal anti-inflammatories (NSAID); Z79.899 Other long term (current) drug therapy
CPT/HCPCS: 74177; 80047; 80076; 81001; 83690; 84703; 85025; 87086; 96374; 96375; 99284; J1885; J2765; Q9967

== ENCOUNTER → 2024-10-07 | Outpatient (REF) | payer OTHER ==
[2024-10-07 20:10] LABS: ALBUMIN 2.9 G/DL (3.2-5.2); ALKALINE PHOSPHATASE 210 U/L (35-104); ALT/SGPT 142 U/L (7.0-40); AST/SGOT 98 U/L (<34); BILIRUBIN,TOTAL 0.6 MG/DL (0.3-1.2); BLOOD UREA NITROGEN 19 MG/DL (9-23); CALCIUM LEVEL 8.6 MG/DL (8.5-10.1); CARBON DIOXIDE LEVEL 25 MMOL/L (20-31); CHLORIDE LEVEL 107 MMOL/L (98-107); CREATININE FOR GFR 0.65 MG/DL (0.55-1.30); GLOMERULAR FILTRATION RATE > 60.0 (>58); GLUCOSE, FASTING 121 MG/DL (60-100); POTASSIUM SERUM 3.8 MMOL/L (3.5-5.1); SODIUM LEVEL 137 MMOL/L (136-145); TOTAL PROTEIN 8.8 G/DL (5.7-8.2)
== END ==
LOC: M SFHCCLAY 10:33
PROVIDERS: ATTEND Family Medicine
DX: R79.89 Other specified abnormal findings of blood chemistry (principal)

== ENCOUNTER → 2024-10-17 | Outpatient (CLI) | payer OTHER | LOC: M PLARAD 10:18 | PROVIDERS: ATTEND Family Medicine | DX: R79.89 Other specified abnormal findings of blood chemistry (principal); K76.0 Fatty (change of) liver, not elsewhere classified ==

== ENCOUNTER 2024-11-06 04:53 | Observation (INO) | payer OTHER ==
[~2024-11-06] VITALS: Ht 163.8 cm; Wt 82.3 kg
[2024-11-06] VITALS (7 sets, daily range): BP systolic 102–142; BP diastolic 51–77; TEMP 96.7–97.7; O2SAT 95–100
[2024-11-06] MEDS: KETOROLAC 30 MG/ML 1ML VIAL IV ONE (05:21)
[2024-11-06] MEDS: ONDANSETRON 4MG 2ML VIAL IV ONE (05:21)
[2024-11-06 05:30] LABS: BASO # 0.1 10^3/uL (0.0-0.2); BASO % 0.6 % (0.0-1.0); EOS # 0.3 10^3/uL (0.0-0.5); EOS % 3.5 % (0.0-3.0); HEMATOCRIT 40.2 % (36.0-47.0); HEMOGLOBIN 13.5 g/dl (12.0-15.5); LYMPH # 2.3 10^3/uL (1.5-5.0); LYMPH % 28.4 % (24.0-44.0); MEAN CORPUSCULAR HEMOGLOBIN 31.8 pg (27.0-33.0); MEAN CORPUSCULAR HGB CONC 33.6 g/dl (32.0-36.5); MEAN CORPUSCULAR VOLUME 94.8 fl (80.0-96.0); MONO # 0.8 10^3/uL (0.0-0.8); MONO % 10.4 % (2.0-8.0); NEUTROPHILS # 4.5 10^3/uL (1.5-8.5); NEUTROPHILS % 56.7 % (36.0-66.0); PLATELET COUNT, AUTOMATED 220 10^3/uL (150-450); RED BLOOD COUNT 4.24 10^6/uL (4.00-5.40)
[2024-11-06 05:34] LABS: APPEARANCE, URINE CLOUDY (CLEAR); BACTERIA, URINE AUTO 1+ (NEGATIVE); BILIRUBIN, URINE AUTO NEGATIVE (NEGATIVE); BLOOD, URINE BLOOD 1+ (NEGATIVE); COLOR, URINE YELLOW (YELLOW); GLUCOSE, URINE (UA) AUTO NEGATIVE (NEGATIVE); KETONE, URINE AUTO NEGATIVE (NEGATIVE); LEUKOCYTE ESTERASE, URINE AUTO 3+ (NEGATIVE); MUCUS, URINE SMALL (NEGATIVE); NITRITE, URINE AUTO NEGATIVE (NEGATIVE); PROTEIN, URINE AUTO NEGATIVE (NEGATIVE); RBC, URINE AUTO 5 /HPF (0-3); SPECIFIC GRAVITY URINE AUTO 1.016 (1.002-1.035); SQUAMOUS EPITHELIAL CELL UR AU 42 /HPF (0-6); UROBILINOGEN, URINE AUTO 0.2 mg/dL (0.0-2.0); WBC, URINE AUTO 9 /HPF (0-3)
[2024-11-06] MEDS ORDERED: ISOVUE-370 76% 100ML VIAL As Ordered ONE (05:35)
[2024-11-06] MEDS ORDERED: fentaNYL 100 MCG/2 ML INJECTION As Ordered ONE (05:53)
[2024-11-06] MEDS: LEVOTHYROXINE 150MCG TABLET (0.15MG) PO SCH (06:00)
[2024-11-06] MEDS: fentaNYL 100 MCG/2 ML INJECTION IV ONE (06:00)
[2024-11-06 06:01] LABS: LIPASE 34 U/L (12-53)
[2024-11-06 06:03] LABS: ALBUMIN 3.2 G/DL (3.2-5.2); ALKALINE PHOSPHATASE 85 U/L (35-104); ALT/SGPT 42 U/L (7.0-40); AST/SGOT 35 U/L (<34); BILIRUBIN,DIRECT < 0.1 MG/DL (<0.4); BILIRUBIN,TOTAL 0.2 MG/DL (0.3-1.2); BLOOD UREA NITROGEN 16 MG/DL (9-23); CARBON DIOXIDE LEVEL 26 MMOL/L (20-31); CHLORIDE LEVEL 107 MMOL/L (98-107); CREATININE FOR GFR 0.62 MG/DL (0.55-1.30); GLOMERULAR FILTRATION RATE > 60.0 (>58); GLUCOSE, FASTING 107 MG/DL (60-100); SODIUM LEVEL 139 MMOL/L (136-145); TOTAL PROTEIN 8.6 G/DL (5.7-8.2)
[2024-11-06] MEDS ORDERED: MORPHINE 2 MG/ML 1ML VIAL IV PRN (06:15)
[2024-11-06] MEDS: NS 500 ML IV ONE (06:26)
[2024-11-06] MEDS: TAMSULOSIN 0.4 MG CAP PO ONE (06:26)
[2024-11-06] MEDS ORDERED: CLON0.5T2 PO (07:44)
[2024-11-06] MEDS ORDERED: ASPI81TA26 PO (07:44)
[2024-11-06] MEDS ORDERED: ARIP1TAB4 PO (07:46)
[2024-11-06] MEDS ORDERED: HOME MED LIST COMPLETE! XX SCH (07:50)
[2024-11-06] MEDS ORDERED: MAALOX 30 ML SUSP *UDC PO PRN (07:55)
[2024-11-06] MEDS ORDERED: MORPHINE 4 MG/ML 1ML VIAL IV PRN (07:55)
[2024-11-06] MEDS: ceFAZolin SOD 2 GM in IV 1 EA IV ONE (07:55)
[2024-11-06] MEDS: NS (Normal Saline) 0.9% 1,000 ML IV SCH (07:55)
[2024-11-06] MEDS ORDERED: ONDANSETRON 4MG 2ML VIAL IV PRN (07:55)
[2024-11-06] MEDS ORDERED: MOM 30ML SUSPENSION UDC PO PRN (07:55)
[2024-11-06] MEDS ORDERED: propofoL 200 MG/20 ML VIAL As Ordered ONE (07:56)
[2024-11-06] MEDS ORDERED: LIDOCAINE 2% 100MG/5ML SDV (FOR ANES.) As Ordered ONE (07:56)
[2024-11-06] MEDS ORDERED: MIDAZOLAM INJ 2MG/2ML VIAL As Ordered ONE (07:57)
[2024-11-06] MEDS ORDERED: ONDANSETRON 4MG 2ML VIAL As Ordered ONE (08:26)
[2024-11-06] MEDS ORDERED: METOCLOPRAMIDE INJ 10MG/2ML VIAL As Ordered ONE (08:26)
[2024-11-06] MEDS ORDERED: ACETAMINOPHEN 1000MG/100ML IV BAG As Ordered ONE (08:33)
[2024-11-06] MEDS: ceFAZolin 2 GM/D5W 50 ML IV BAG As Ordered ONE (08:36)
[2024-11-06] MEDS: ISOVUE-300 61% 100ML VIAL As Ordered ONE (08:37)
[2024-11-06 09:17] LABS: HCG, SERUM QUALITATIVE NEGATIVE (NEGATIVE)
[2024-11-06] MEDS: DOCUSATE SODIUM 100MG CAPSULE PO SCH (09:51)
[2024-11-06] MEDS: TAMSULOSIN 0.4 MG CAP PO SCH (09:51)
[2024-11-06] MEDS: ASPIRIN 81MG ENTERIC TABLET PO SCH (09:52)
[2024-11-06] MEDS: clonazePAM 0.5 MG TAB PO SCH (09:52)
[2024-11-06] MEDS: CARVedilol 12.5 MG TAB PO SCH (09:52)
[2024-11-06] MEDS: cefTRIAXone SOD 1 GM in DEXTROSE 5% (D5W) ADV/MINI-BAG 50 ML IV SCH (11:04)
[2024-11-06] MEDS: lamoTRIgine 25MG TAB PO SCH (11:27)
[2024-11-06] MEDS: ARIPiprazole 2 MG TAB PO SCH (11:28)
[2024-11-06] MEDS: VENLAFAXINE **XR** 37.5 MG CAPSULE PO SCH (11:28)
[2024-11-06] MEDS: oxyBUTYnin 5 MG TAB PO SCH (15:08)
[2024-11-06 17:14] LABS: HEMATOCRIT 35.8 % (36.0-47.0); HEMOGLOBIN 11.8 g/dl (12.0-15.5); MEAN CORPUSCULAR HEMOGLOBIN 31.4 pg (27.0-33.0); MEAN CORPUSCULAR VOLUME 95.2 fl (80.0-96.0); PLATELET COUNT, AUTOMATED 183 10^3/uL (150-450); RED BLOOD COUNT 3.76 10^6/uL (4.00-5.40); WHITE BLOOD COUNT 6.1 10^3/uL (4.0-10.0)
[2024-11-06] MEDS: ACETAMINOPHEN 325 MG TAB PO PRN (22:35)
[2024-11-07 04:01] VITALS: BP 129/62; TEMP 97.5; O2SAT 95
[2024-11-07 04:30] LABS: HEMATOCRIT 35.5 % (36.0-47.0); HEMOGLOBIN 11.7 g/dl (12.0-15.5); MEAN CORPUSCULAR HEMOGLOBIN 31.4 pg (27.0-33.0); MEAN CORPUSCULAR VOLUME 95.2 fl (80.0-96.0); PLATELET COUNT, AUTOMATED 183 10^3/uL (150-450); RED BLOOD COUNT 3.73 10^6/uL (4.00-5.40); WHITE BLOOD COUNT 6.6 10^3/uL (4.0-10.0)
[2024-11-07 04:59] LABS: BLOOD UREA NITROGEN 12 MG/DL (9-23); CALCIUM LEVEL 7.7 MG/DL (8.5-10.1); CARBON DIOXIDE LEVEL 27 MMOL/L (20-31); CHLORIDE LEVEL 110 MMOL/L (98-107); CREATININE FOR GFR 0.66 MG/DL (0.55-1.30); GLOMERULAR FILTRATION RATE > 60.0 (>58); GLUCOSE, FASTING 92 MG/DL (60-100); POTASSIUM SERUM 3.9 MMOL/L (3.5-5.1); SODIUM LEVEL 140 MMOL/L (136-145)
[2024-11-07 08:02] VITALS: BP 137/73; TEMP 98.4; O2SAT 96
[2024-11-07 08:54] VITALS: BP 137/73
[2024-11-07] MEDS ORDERED: ENOXAPARIN 40MG/0.4ML SYRINGE (J1650 PER 10MG) SC SCH (09:00)
[2024-11-07 09:43] LABS: HEMATOCRIT 36.2 % (36.0-47.0); MEAN CORPUSCULAR HEMOGLOBIN 31.7 pg (27.0-33.0); MEAN CORPUSCULAR HGB CONC 33.1 g/dl (32.0-36.5); MEAN CORPUSCULAR VOLUME 95.8 fl (80.0-96.0); PLATELET COUNT, AUTOMATED 181 10^3/uL (150-450); RED BLOOD COUNT 3.78 10^6/uL (4.00-5.40); WHITE BLOOD COUNT 5.9 10^3/uL (4.0-10.0)
[2024-11-07] MEDS ORDERED: PYRI1TAB5 PO (10:28)
[2024-11-07] MEDS ORDERED: OXYB5TAB14 PO (10:28)
[2024-11-07] MEDS ORDERED: CEFD1CAP9 PO (10:28)
== END 2024-11-07 11:45 | disposition home or self-care (01) ==
LOC: M ED 04:53 → M ED INP 07:52 → M PCU 09:40
PROVIDERS: ADMIT Internal Medicine; ATTEND Internal Medicine
DX: N30.90 Cystitis, unspecified without hematuria (principal); I87.8 Other specified disorders of veins; I10 Essential (primary) hypertension; F41.9 Anxiety disorder, unspecified; G40.909 Epilepsy, unspecified, not intractable, without status epilepticus; E03.9 Hypothyroidism, unspecified; F32.A Depression, unspecified; G43.909 Migraine, unspecified, not intractable, without status migrainosus; E28.2 Polycystic ovarian syndrome; E04.9 Nontoxic goiter, unspecified; R13.10 Dysphagia, unspecified; K76.0 Fatty (change of) liver, not elsewhere classified; D35.4 Benign neoplasm of pineal gland; Z90.79 Acquired absence of other genital organ(s); Z79.82 Long term (current) use of aspirin; Z79.890 Hormone replacement therapy; Z79.899 Other long term (current) drug therapy; Z88.8 Allergy status to other drugs, medicaments and biological substances; Z91.040 Latex allergy status
CPT/HCPCS: 36415; 52351; 72195; 74177; 76000; 76775; 80047; 80048; 80076; 81001; 83605; 83690; 84703; 85025; 85027; 87086; 96361; 96365; 96375; 99284; C1769; J0131; J0690; J0696; J1885; J2250; J2405; J2765; J3010; Q9967

== ENCOUNTER → 2024-11-08 | Outpatient (REF) | payer OTHER ==
[~2024-11-08] MED LIST changes: +ARIP1TAB4 PO; +CEFD1CAP9 PO; +CLON0.5T2 PO; +OXYB5TAB14 PO; +PYRI1TAB5 PO
== END ==
LOC: M LABDRAWC 16:03
PROVIDERS: ATTEND Internal Medicine
DX: M79.10 Myalgia, unspecified site (principal)

== ENCOUNTER → 2024-11-08 | Outpatient (REF) | payer OTHER | LOC: M SFHCRHEU 11:22 | PROVIDERS: ATTEND Internal Medicine | DX: M79.10 Myalgia, unspecified site (principal) ==

== ENCOUNTER → 2024-11-25 | Outpatient (REF) | payer OTHER ==
[2024-11-25 18:53] LABS: AMORPHOUS SEDIMENT LARGE (NEGATIVE); APPEARANCE, URINE TURBID (CLEAR); BACTERIA, URINE AUTO NEGATIVE (NEGATIVE); BILIRUBIN, URINE AUTO NEGATIVE (NEGATIVE); BLOOD, URINE BLOOD 1+ (NEGATIVE); COLOR, URINE YELLOW (YELLOW); GLUCOSE, URINE (UA) AUTO NEGATIVE (NEGATIVE); KETONE, URINE AUTO NEGATIVE (NEGATIVE); LEUKOCYTE ESTERASE, URINE AUTO NEGATIVE (NEGATIVE); MUCUS, URINE LARGE (NEGATIVE); NITRITE, URINE AUTO NEGATIVE (NEGATIVE); PROTEIN, URINE AUTO NEGATIVE (NEGATIVE); RBC, URINE AUTO 0 /HPF (0-3); SPECIFIC GRAVITY URINE AUTO 1.026 (1.002-1.035); SQUAMOUS EPITHELIAL CELL UR AU 3 /HPF (0-6); UROBILINOGEN, URINE AUTO 0.2 mg/dL (0.0-2.0); WBC, URINE AUTO 0 /HPF (0-3)
== END ==
LOC: M SMT 17:03
PROVIDERS: ATTEND Nurse Practitioner Family
DX: N30.90 Cystitis, unspecified without hematuria (principal)

== ENCOUNTER → 2024-12-03 | Outpatient (REF) | payer OTHER ==
[2024-12-03 17:13] LABS: BASO % 0.5 % (0.0-1.0); EOS # 0.2 10^3/uL (0.0-0.5); EOS % 3.7 % (0.0-3.0); HEMATOCRIT 39.4 % (36.0-47.0); HEMOGLOBIN 13.1 g/dl (12.0-15.5); LYMPH # 1.8 10^3/uL (1.5-5.0); LYMPH % 32.4 % (24.0-44.0); MEAN CORPUSCULAR HEMOGLOBIN 31.1 pg (27.0-33.0); MEAN CORPUSCULAR HGB CONC 33.2 g/dl (32.0-36.5); MEAN CORPUSCULAR VOLUME 93.6 fl (80.0-96.0); MONO # 0.5 10^3/uL (0.0-0.8); MONO % 8.1 % (2.0-8.0); NEUTROPHILS # 3.1 10^3/uL (1.5-8.5); NEUTROPHILS % 55.1 % (36.0-66.0); PLATELET COUNT, AUTOMATED 213 10^3/uL (150-450); RED BLOOD COUNT 4.21 10^6/uL (4.00-5.40); WHITE BLOOD COUNT 5.7 10^3/uL (4.0-10.0)
[2024-12-03 17:41] LABS: ALBUMIN 3.3 G/DL (3.2-5.2); ALKALINE PHOSPHATASE 97 U/L (35-104); ALT/SGPT 120 U/L (7.0-40); AST/SGOT 104 U/L (<34); BILIRUBIN,TOTAL 0.5 MG/DL (0.3-1.2); BLOOD UREA NITROGEN 17 MG/DL (9-23); CALCIUM LEVEL 8.4 MG/DL (8.5-10.1); CARBON DIOXIDE LEVEL 27 MMOL/L (20-31); CHLORIDE LEVEL 108 MMOL/L (98-107); CREATININE FOR GFR 0.66 MG/DL (0.55-1.30); GLOMERULAR FILTRATION RATE > 60.0 (>58); GLUCOSE, FASTING 87 MG/DL (60-100); POTASSIUM SERUM 3.6 MMOL/L (3.5-5.1); SODIUM LEVEL 139 MMOL/L (136-145); TOTAL PROTEIN 8.4 G/DL (5.7-8.2)
== END ==
LOC: M SFHCCLAY 11:28
PROVIDERS: ATTEND Family Medicine
DX: R10.13 Epigastric pain (principal); K76.0 Fatty (change of) liver, not elsewhere classified

== ENCOUNTER → 2024-12-13 | Outpatient (CLI) | payer OTHER ==
[~2024-12-13] MED LIST changes: +E-Z-GAS II EFFERVESCENT PACKET (SODIUM BICARB./CITRIC ACID/SIMETHICONE) As Ordered ONE; +E-Z-HD 98% w/w 340GM SUSP BTL As Ordered ONE; +E-Z-PAQUE 96% w/w SUSP 176GM BTL As Ordered ONE
== END ==
LOC: M RAD 09:09
PROVIDERS: ATTEND Family Medicine
DX: R10.13 Epigastric pain (principal); K31.7 Polyp of stomach and duodenum; K31.89 Other diseases of stomach and duodenum; K57.11 Diverticulosis of small intestine without perforation or abscess with bleeding

== ENCOUNTER → 2025-01-01 | Outpatient (CLI) | payer OTHER ==
[~2025-01-01] MED LIST changes: -E-Z-GAS II EFFERVESCENT PACKET (SODIUM BICARB./CITRIC ACID/SIMETHICONE) As Ordered ONE; -E-Z-HD 98% w/w 340GM SUSP BTL As Ordered ONE; -E-Z-PAQUE 96% w/w SUSP 176GM BTL As Ordered ONE
== END ==
LOC: M PLAIMG 06:50
PROVIDERS: ATTEND Internal Medicine
DX: M79.641 Pain in right hand (principal); M79.642 Pain in left hand; M25.441 Effusion, right hand; M65.841 Other synovitis and tenosynovitis, right hand; M25.442 Effusion, left hand; M65.842 Other synovitis and tenosynovitis, left hand; M67.442 Ganglion, left hand

== ENCOUNTER → 2025-01-14 | Outpatient (REF) | payer OTHER ==
[2025-01-14 19:26] LABS: ALBUMIN 3.2 G/DL (3.2-5.2); ALKALINE PHOSPHATASE 91 U/L (35-104); ALT/SGPT 70 U/L (7.0-40); AST/SGOT 54 U/L (<34); BILIRUBIN,TOTAL 0.4 MG/DL (0.3-1.2); BLOOD UREA NITROGEN 16 MG/DL (9-23); CALCIUM LEVEL 8.6 MG/DL (8.5-10.1); CARBON DIOXIDE LEVEL 28 MMOL/L (20-31); CHLORIDE LEVEL 107 MMOL/L (98-107); CREATININE FOR GFR 0.69 MG/DL (0.55-1.30); GLOMERULAR FILTRATION RATE > 60.0 (>58); GLUCOSE, FASTING 73 MG/DL (60-100); POTASSIUM SERUM 4.1 MMOL/L (3.5-5.1); SODIUM LEVEL 142 MMOL/L (136-145); TOTAL PROTEIN 8.8 G/DL (5.7-8.2)
== END ==
LOC: M SFHCCLAY 14:01
PROVIDERS: ATTEND Family Medicine
DX: R10.13 Epigastric pain (principal)

== ENCOUNTER → 2025-02-11 | Outpatient (REF) | payer OTHER ==
[2025-02-11 16:35] LABS: COMPLEMENT C4 6.9 MG/DL (12-36)
[2025-02-11 16:37] LABS: TOTAL 25(OH) VITAMIN D 18.3 NG/ML (20.0-100.0)
== END ==
LOC: M SFHCRHEU 12:05
PROVIDERS: ATTEND Internal Medicine
DX: E54 Ascorbic acid deficiency (principal); E55.9 Vitamin D deficiency, unspecified; R77.8 Other specified abnormalities of plasma proteins; M32.9 Systemic lupus erythematosus, unspecified

== ENCOUNTER → 2025-02-14 | Outpatient (REF) | payer OTHER ==
[2025-02-14 18:55] LABS: ALBUMIN 3.1 G/DL (3.2-5.2); BILIRUBIN,DIRECT 0.1 MG/DL (<0.4); BILIRUBIN,TOTAL 0.4 MG/DL (0.3-1.2); TOTAL PROTEIN 8.4 G/DL (5.7-8.2)
[2025-02-16 06:08] LABS: T P ELECTROPHORESIS SO 8.3 g/dL (6.1-8.1)
[2025-02-17 16:12] LABS: ANTI-MITOCHONDRIAL ANTIBODY NEGATIVE (NEGATIVE)
[2025-02-18 03:31] LABS: TISSUE TRANSGLUTAMINASE IgA < 1.0 U/mL (<15.0)
[2025-02-18 07:48] LABS: ALBUMIN SPEP 3.8 g/dL (3.8-4.8); ALPHA-1-GLOBULINS SO 0.3 g/dL (0.2-0.3); ALPHA-2-GLOBULINS SO 0.6 g/dL (0.5-0.9); BETA 2 GLOBULIN 0.4 g/dL (0.2-0.5); BETA-GLOBULIN SO 0.4 g/dL (0.4-0.6); GAMMA GLOBULINS SO 2.9 g/dL (0.8-1.7)
[2025-02-18 10:51] LABS: ALPHA 1 ANTITRYPSIN 185 mg/dL (83-199)
[2025-02-18 14:32] LABS: ANA PATTERN Nuclear, Homogeneous (NEGATIVE); ANA SCREEN, IFA POSITIVE (NEGATIVE); ANA TITER > OR = 1:1280 titer (<1:40)
[2025-02-18 23:33] LABS: LIVER-KIDNEY MICROSOMAL ABY <= 20.0 U (<=20.0)
[2025-02-19 11:32] LABS: ANTI-SMOOTH MUSCLE ANTIBODY 79 U (<20)
== END ==
LOC: M LABDRAWC 17:52
PROVIDERS: ATTEND Nurse Practitioner Family
DX: R94.5 Abnormal results of liver function studies (principal); R79.89 Other specified abnormal findings of blood chemistry

== ENCOUNTER → 2025-06-30 | Outpatient (REF) | payer OTHER ==
[~2025-06-30] MED LIST changes: +LAMO-18 PO; -LAMO25TA4 PO; +LISI40TA10 PO; -LISI40TA4 PO; +VENL225T PO; -VENL225T32 PO
[2025-06-30 18:57] LABS: FREE T4 0.72 NG/DL (0.89-1.76)
[2025-06-30 19:01] LABS: TOTAL T3 173.1 NG/DL (60.0-181.0)
== END ==
LOC: M SFHCRHEU 11:04
PROVIDERS: ATTEND Internal Medicine
DX: E54 Ascorbic acid deficiency (principal); E55.9 Vitamin D deficiency, unspecified

== ENCOUNTER → 2025-07-08 | Outpatient (REF) | payer OTHER ==
[2025-07-08 18:22] LABS: APPEARANCE, URINE HAZY (CLEAR); BACTERIA, URINE AUTO NEGATIVE (NEGATIVE); BILIRUBIN, URINE AUTO NEGATIVE (NEGATIVE); BLOOD, URINE BLOOD 2+ (NEGATIVE); GLUCOSE, URINE (UA) AUTO NEGATIVE (NEGATIVE); KETONE, URINE AUTO NEGATIVE (NEGATIVE); LEUKOCYTE ESTERASE, URINE AUTO NEGATIVE (NEGATIVE); MUCUS, URINE SMALL (NEGATIVE); NITRITE, URINE AUTO NEGATIVE (NEGATIVE); PROTEIN, URINE AUTO NEGATIVE (NEGATIVE); RBC, URINE AUTO 2 /HPF (0-3); SPECIFIC GRAVITY URINE AUTO 1.025 (1.002-1.035); SQUAMOUS EPITHELIAL CELL UR AU 3 /HPF (0-6); UROBILINOGEN, URINE AUTO 0.2 mg/dL (0.0-2.0); WBC, URINE AUTO 1 /HPF (0-3)
[2025-07-08 19:11] LABS: TOTAL PROTEIN,RANDOM URINE 17.6 MG/DL (0.0-14.0)
[2025-07-08 19:34] LABS: COMPLEMENT C4 11.1 MG/DL (12-36)
[2025-07-08 19:39] LABS: C REACTIVE PROTEIN QUANTITATIV 0.77 MG/DL (<1.0)
[2025-07-12 19:38] LABS: COMPLEMENT TOTAL (CH50) > 60 U/mL (31-60)
[2025-07-14 10:47] LABS: ANTI DS-DNA AB Positive (Negative)
[2025-07-14 11:13] LABS: ANTI DS-DNA TITER >=1:1280 titer (<1:10)
== END ==
LOC: M SFHCRHEU 15:51
PROVIDERS: ATTEND Internal Medicine
DX: M32.9 Systemic lupus erythematosus, unspecified (principal)

== ENCOUNTER → 2025-08-25 | Outpatient (REF) | payer OTHER ==
[2025-08-25 18:24] LABS: ALT/SGPT 20 U/L (7.0-40); AST/SGOT 16 U/L (<34); CALCIUM LEVEL 8.6 MG/DL (8.5-10.1); CARBON DIOXIDE LEVEL 26 MMOL/L (20-31); CHLORIDE LEVEL 106 MMOL/L (98-107); CHOLESTEROL LEVEL 150 MG/DL (<200); CHOLESTEROL RISK RATIO 2.78 (<5); CREATININE FOR GFR 0.68 MG/DL (0.55-1.30); GLOMERULAR FILTRATION RATE > 90.0 (>58); LDL CHOLESTEROL 80.3 MG/DL (<100); NON-HDL-C 96.1 MG/DL; POTASSIUM SERUM 3.5 MMOL/L (3.5-5.1); SODIUM LEVEL 142 MMOL/L (136-145); TRIGLYCERIDES LEVEL 79 MG/DL (<150)
[2025-08-25 18:25] LABS: FREE T4 0.77 NG/DL (0.89-1.76)
[2025-08-25 18:27] LABS: TOTAL T3 146.6 NG/DL (60.0-181.0)
[2025-08-25 18:28] LABS: PLATELET COUNT, AUTOMATED 246 10^3/uL (150-450)
[2025-08-25 18:54] LABS: ESTIMATED AVERAGE GLUCOSE 108.0 MG/DL (60-110)
== END ==
LOC: M SFHCCLAY 10:57
PROVIDERS: ATTEND Family Medicine
DX: I10 Essential (primary) hypertension (principal); K76.0 Fatty (change of) liver, not elsewhere classified; R73.01 Impaired fasting glucose; E03.9 Hypothyroidism, unspecified

== ENCOUNTER → 2025-09-04 | Outpatient (REF) | payer OTHER ==
[2025-09-04 17:59] LABS: ALT/SGPT 19.0 U/L (7.0-40); AST/SGOT 15.0 U/L (<34)
== END ==
LOC: M LABDRAWC 17:19
PROVIDERS: ATTEND Physician Assistant
DX: K76.0 Fatty (change of) liver, not elsewhere classified (principal); K74.3 Primary biliary cirrhosis; K21.9 Gastro-esophageal reflux disease without esophagitis; R10.9 Unspecified abdominal pain; R19.7 Diarrhea, unspecified